=== PATIENT | male | born 1950 | race Caucasian/White ===

== ENCOUNTER → 2017-05-18 | Outpatient (CLI) | payer BC ==
[~2017-05-18] MED LIST: ASPI81TA28 PO; ATOR-22 PO; COEN1CAP17 PO; FENO134C2 PO; LISI20TA3 PO; MULT-506 PO; NAPR1TAB9 PO; OMEG10007 PO; PANT40TA PO; PYRI100T4 PO
[2017-05-18 09:45] LABS: BLOOD UREA NITROGEN 18 mg/dl (7-18)
[2017-05-18 09:57] LABS: % FREE PSA 23.6 %; FREE PSA 1.18 ng/ml
== END | disposition home or self-care (01) ==
LOC: C.LAB1850 07:02
PROVIDERS: ATTEND Urology
DX: R35.0 Frequency of micturition (principal)

== ENCOUNTER → 2017-10-02 | Outpatient (CLI) | payer BC ==
[2017-10-02 09:56] LABS: ALT/SGPT 40 U/L (12-78); AST/SGOT 18 U/L (15-37); BLOOD UREA NITROGEN 22 mg/dl (7-18); BUN/CREATININE RATIO 21.7 (10-20); CALCIUM 9.2 mg/dl (8.5-10.1); CARBON DIOXIDE 29 mmol/L (21-32); CHLORIDE 105 mmol/L (98-107); CREATININE 1.01 mg/dl (0.60-1.40); GLUCOSE 112 mg/dl (70-99); SODIUM 138 mmol/L (136-145)
[2017-10-02 10:07] LABS: ALB/GLOB RATIO 1.1 (0.9-2); ALKALINE PHOSPHATASE 92 U/L (45-117); CHOLESTEROL 140 mg/dl (0-200); CHOLESTEROL/HDL RATIO 2.8; HDL CHOLESTEROL 50 mg/dl; LDL CHOLESTEROL CALCULATED 66 mg/dl; THYROID STIMULATING HORMONE 0.464 uIu/ml (0.300-4.500); TRIGLYCERIDES 118 mg/dl (0-150); VERY LOW DENSITY LIPOPROT CALC 24 mg/dl
[2017-10-02 10:28] LABS: RATIO 5.7 mcg/mg (0-30.0)
[2017-10-02 12:30] LABS: ESTIMATED AVERAGE GLUCOSE 131 mg/dl; HA1C FLAG Normal (Normal)
== END | disposition home or self-care (01) ==
LOC: C.LAB1850 06:49
PROVIDERS: ATTEND Family Medicine
DX: E11.9 Type 2 diabetes mellitus without complications (principal); E78.5 Hyperlipidemia, unspecified; I10 Essential (primary) hypertension

== ENCOUNTER → 2017-10-12 | Outpatient (CLI) | payer BC ==
--- NOTE | 2017-10-12 09:00 | DIAGNOSTIC IMAGING REPORT ---
R SHOULDER MIN 2 VIEWS ROUTINE CLINICAL HISTORY: Right shoulder pain COMPARISON: None. DISCUSSION: No fractures or dislocations are visualized. There are no visible periarticular calcifications. IMPRESSION: Unremarkable conventional radiographic evaluation of the right shoulder for age Electronically signed by: Carlitos Turner M.D. 10/12/2017 8:59 AM Dictated Date/Time: 10/12/2017 8:58 AM
== END | disposition home or self-care (01) ==
LOC: C.RAD1850 08:35
PROVIDERS: ATTEND Family Medicine
DX: M25.511 Pain in right shoulder (principal)

== ENCOUNTER → 2018-01-08 | Outpatient (CLI) | payer BC ==
--- NOTE | 2018-01-08 13:27 | DIAGNOSTIC IMAGING REPORT ---
CHEST 2 VIEWS ROUTINE CLINICAL HISTORY: RIB PAIN pain COMPARISON STUDY: No previous studies for comparison. FINDINGS: Mild cardiomegaly. Parenchymal infiltrative process left base. Pleural reactive change of the lateral aspects of the basal lung regions bilaterally. Mid and upper lungs are considered clear. IMPRESSION: Mild cardiomegaly. Parenchymal infiltrate left base. The above report was generated using voice recognition software. It may contain grammatical, syntax or spelling errors. Electronically signed by: Gallo Cutler M.D. 01/08/2018 1:26 PM Dictated Date/Time: 01/08/2018 1:24 PM
== END | disposition home or self-care (01) ==
LOC: C.RAD1850 13:18
PROVIDERS: ATTEND Family Medicine
DX: R07.81 Pleurodynia (principal)

== ENCOUNTER 2024-12-02 09:49 | Inpatient (IN) ==
--- NOTE | 2024-12-02 08:21 | History & Physical Bridge Note ---
Date of Service December 02, 2024 History & Physical Bridge Note I have examined the patient, reviewed the History & Physical and in the interval since the performance of the History & Physical I have noted the following changes of clinical significance: no changes noted
--- NOTE | 2024-12-02 08:21 | Pre Anesthesia Assessment ---
Date of Service December 02, 2024 Pre Sedation Assessment Cardiovascular + regular rate Respiratory + respiratory effort normal Pre-Sedation Airway Assessment Smoking Status: Never smoker Hx Sleep Apnea: No Hx Difficult Intubation: No Thyromental Distance: < 3.5 Finger Breadths Oral Cavity: + Dental Abnormalities Mallampati Class: III ASA: ASA3 Procedure Planning Contraindications for Sedation: none Current Medications Reviewed: Yes Notes The planned sedation has been discussed with the patient. Informed Consent was obtained. I have identified the patient, determined the appropriateness of sedation and have assessed the patient immediately prior to the procedure. All medicine(s) and interventions are by my order.
[2024-12-02] MEDS: ASPIRIN 81 MG CHEW ONE (10:41)
[2024-12-02] MEDS: NITROGLYCERIN/D5W 100MCG/ML 20ML SYR ONE (10:41)
[2024-12-02] MEDS: niCARdipine 2,000 MCG/20 ML SYR ONE (10:41)
[2024-12-02 10:46] LABS: iSTAT Hemoglobin 13.6 g/dl (14.0-18.0); iSTAT Ionized Calcium 1.26 mmol/l (1.12-1.32); iSTAT Potassium 4.2 mmol/L (3.3-5.0)
[2024-12-02] MEDS: MIDAZOLAM HCL 1 MG/ML 2ML VIAL ONE ×4 (13:10→13:12)
[2024-12-02] MEDS: fentaNYL citrate PF 100 MCG/2 ML VIAL ONE ×3 (13:10→13:12)
[2024-12-02] MEDS: OPTIRAY 350 ONE (13:10)
[2024-12-02] MEDS: HEPARIN (PORCINE) 1000 UNIT/ML 10 ML (CATH LAB USE ONLY) ONE ×2 (13:10→13:12)
[2024-12-02] MEDS: CLOPIDOGREL BISULFATE 300 MG TAB ONE (13:11)
[2024-12-02] MEDS: ONDANSETRON INJ 2 MG/ML 2 ML VIAL ONE (13:12)
[2024-12-02] MEDS: NOREPINEPHRINE/D5W 4 MG/250 ML IV ONE (13:12)
--- NOTE | 2024-12-02 13:23 | Post Anesthesia Assessment ---
Date of Service December 02, 2024 Post Sedation Assessment Vital Signs BP 12/02/24 09:57 157/81 H Recovery Score Activity: Moves 4 extremities Respiration: Deep Breath/Cough Circulation: +/-20% PreAnes Value Consciousness: Fully Awake Oxygen Saturation: O2 needed for >90% Discharge Sedation Level of Care: Fast Track Phase II Post Sedation Plan On clinical assessment, the patient appears to have tolerated the sedation without complications. Patient is recovering as anticipated. Patient will continue to be monitored by nursing and may be discharged when sedation discharge criteria are met per below protocol. Upon Completions of procedure up to 15 minutes continue every 5 minute vital signs and the P.A.R. score; then discharge to a Phase I or Fast Track to Phase II per the following guidelines: * Discharge Patient to appropriate Phase II area if PAR is 8 or greater or return to pre- procedure baseline. The post - procedure orders will be as directed. * If PAR score is less than 8 or not return to pre-procedure baseline then patient will follow Phase I monitoring till PAR is reached for Phase II. The Phase I may be done in procedure room or may call to secure a Phase I area. * If naloxone or flumazenil are used for reversal, hold in Phase I for continued monitoring from when last reversal dose was given for a minimum of 60 minutes or longer pending the nurse and/or physician discretion of patient condition before discharge to Phase II. Please call the Sedation Physician to re-evaluate and complete post-note for discharge to Phase II area. Do NOT discharge from procedure sedation or Phase 1 until post- sedation evaluation note is complete by procedure /sedation MD Sedation Discharge Instructions to be given to the patient at discharge to home.
--- NOTE | 2024-12-02 13:25 | Cardiac Catheterization ---
[employer] Data: Welfare Worker Cardiac Status Clinical evaluation leading to the procedure CAD Presenation: Stable angina Anginal Classification: CCS III Diagnostic Physicians Name: Gareth Bui MD Closure Device Recommendations: PCI without planned CABG Cardiac Cath Procedure Full Procedure Date December 02, 2024 Pre-Procedure Diagnosis Pre-Procedure Diagnosis: CAD AUC Score AUC Score: 7 Post-Procedure Diagnosis Post-Procedure Diagnosis: Severe CAD and Successful PCI Procedure(s) Performed Procedure(s) Performed: Coronary Angiography and Procedure (Intravascular lithotripsy) Shell Sorter Gareth Bui MD Vacuum Metalizing Supervisor(s) Showers Estimated Blood Loss Estimated Blood Loss: 45 Medication(s) Medication(s): Clopidogrel, Fentanyl, Heparin, Lidocaine 1%, Nicardipine, Nitroglycerin, Norepinephrine and Versed Summary of Findings Indication: Exertional dyspnea, abnormal stress test, frequent ventricular ectopy Access: 6 Fr slender right radial artery Catheters: [place], diagnostic JL 3.5, AR-1 guide Findings: LM -normal caliber, no significant disease LAD -small to medium caliber, with mid segment luminal irregularities. Small distal vessel tapers prior to apex. Medium D1 without significant disease. Small D2 without disease. Circumflex -medium caliber vessel that courses in ramus territory. RCA -large-caliber, calcified, 40-50% mid RCA takeoff of RV marginal, mild diffuse distal disease prior to 80 to 90% heavily calcified stenosis just prior to takeoff of RPDA. Large right posterior AV branch into PLB's widely patent. -- PCI -- Antithrombotic therapy: Heparin, clopidogrel Procedure: RCA cannulated with AR-1 guide Pre-procedure flow LESLEE 3 [place] blue wire passed across lesion into distal right PLB With the aid of a GuideLiner distal RCA lesion predilated with 3.0 compliant balloon Attempt made to pass 3.5 x 12 mm shockwave IVL catheter across stenosis unsuccessful. Distal RCA just proximal to distal stenosis treated with IVL for a total of 50 pulses at 4 alfred. Further attempts to predilate stenosis with 2.5 and 3.0 NC balloons With balloon inflations across PDA had transient ST elevations and borderline hypotension. Briefly on 0.05 norepinephrine, stopped with increased ventricular ectopy. Attempt made to pass 3.5 x 22 mm [place] across stenosis unsuccessful despite GuideLiner placement in distal RCA Additional attempt made to further dilate calcified stenosis with 3.0 shockwave balloon. Again unable to pass balloon completely across stenosis. Treated with additional 40 pulses of IVL just proximal to stenosis. Attempt made to further dilate with 3.5 NC but unable to pass balloon. Dilated again with 2.5 NC balloon prior to repeat attempt at passing 3.5 x 22 mm Lemuel which again would not cross stenosis and stent removed undeployed. Distal stenosis rewired with mailman wire which was placed into most terminal PLB With aid of a GuideLiner eventually able to pass 3.5 x 15 mm Lemuel frontier across stenosis and takeoff of PDA Stent post-dilated with 3.0 and 3.5 noncompliant balloons. Still with residual severe stenosis just prior to PDA 3.0 shockwave balloon placed into stent. Residual stenosis treated with 70 additional pulses Post shockwave stent well-expanded with LESLEE-3 flow and PDA and posterior V branch with minimal residual stenosis and no apparent cardiac complications. Arterial Closure: TR band Summary: 1. Severe single vessel coronary artery disease -80-90% heavily calcified distal RCA at takeoff of RPDA 2. Successful PCI of distal RCA with intravascular lithotripsy and single drug- eluting stent (3.0 x 15 mm Lemuel; postdilated with 3.5 NC and additional lithotripsy). 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 Any exceptions are noted below. [facility] Card Cath Procedure Codes Cardiac Catheterization Procedure 1: Cardiovascular Cath Procedures: 75909 Coronaries Moderate Sedation Procedure 1: Sedation/Anesthesia: 38619 Mod Sedation by the same physician;Init15 Min Child Age 5 & Up Procedure 2: Sedation/Anesthesia: 70206 Mod Sedation by the same physician; Ea [id number] Minutes Angioplasty Procedure 1: Cardiovascular Angioplasty Procedures: 15956 Perq Trluml Coronry Lithotrp Stenting Procedure 1: Cardiovascular Stent Procedures: 27232 Perc transcatheter placement of intracoronary stent(s), with ang PG Care Time/CCT Total # of Minutes Spent Total Time Spent with Patient: Total time spent is greater than 50% in coordination of care (as documented) at patient's floor/unit and/or counseling patient:
[2024-12-02] MEDS ORDERED: ONDANSETRON INJ 2 MG/ML 2 ML VIAL IV PRN (13:28)
[2024-12-02] MEDS ORDERED: NITROGLYCERIN SL 0.4 MG/TAB TAB SL PRN (13:28)
--- OUTSIDE RECORDS SUMMARY | 2024-12-02 13:59 | External Medical Summary | Continuity of Care Document ---
Author Name Unknown Organization [facility] [address] [facility] Address [address] [place], [place] [id number] Care Team Providers Care Staff Appraiser Name Role Phone Roddy Hugheslionel Primary Care Physician [phone] [id number] Date(s): 11/26/24 - 11/26/24 [facility] [address], [address] [place] [address] [phone] Encounter Diagnosis Frequent PVCs(Discharge Diagnosis) - 11/26/24 Chronotropic incompetence(Discharge Diagnosis) - 11/26/24 FRANCIS (dyspnea on exertion)(Discharge Diagnosis) - 11/26/24 Hypotension(Discharge Diagnosis) - 11/26/24 Abnormal stress echo(Discharge Diagnosis) - 11/26/24 Discharge Disposition: Home or Self Care Attending Physician: LINDA Salas Sarah A Allergies, Adverse Reactions, Alerts Substance Criticality Severity Reaction Reaction Severity Status penicillin itching Active Assessment and Plan Extracted from: Title:Cardiology Office Visit Note Author:LINDA Mcgovern rd, Sarah A Date:11/26/24 Impression: 1. Fatigue and dyspnea 2. Echo 10/2024 - NormalLVF, EF 65%, mild LVH,Elevated left ventricular end-diastolic pressure. Grade II diastolic dysfunction, Severely dilated left atrium,mildly dilated right ventricle with normal systolic function,Mildly dilated right atrium,dilated aortic root (4.1 cm) and ascending aorta (4.1 cm), Heavily calcified, trileaflet aortic valve. Moderate aortic stenosis, moderate aortic insufficiency,mild to moderate mitral valve regurgitation,Mildly elevated pulmonary artery pressures; estimated PASP is 38 mmHg 3. HLD 4. 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 Stress echo achieving 72% of MPHR, lots of ectopy at all stages of stress getting progressively more frequent with increasedexertion, short episode of NSVTno ischemia, blunted blood pressure response and hypotension Mr. Bustamante's studies were reviewed with him. His stress testwas unable to rule out ischemia given that he only hit 70% MPHR. His dyspnea may be caused by the to be itself, more the blunted blood pressure responseor chronotropic incompetence, orcoronary disease which is subsequently causing all the ectopy. Would recommend a cardiac catheterization for him. Idiscussed the risk benefits of cardiac catheterization.Risks including but not limited tobleeding or infection at the puncture site, damage to the patient's radial or femoral artery,risk of contrast-induced nephropathy, allergic reaction to contrastand aone in ten thousand risk of heart attack, stroke, or . The patient understands the risksand wishes to proceed. He would like this to be scheduled at [facility]. I would also like him to seeelectrophysiologyfor consideration of pacemakerand/or PVC ablation. We are still awaiting his Holter study to see how many PVCs he hasin a 24-hour. I will avoid adding AV alisia blockers given hischronotropic incompetence. He will return to the clinicin3 months, sooner if necessary based on testing. Immunizations Given and Recorded Vaccine Date Status Refusal Reason RSV Vaccine Unspecified 09/01/24 Recorded influenza virus vaccine, inactivated 08/29/24 Give n influenza virus vaccine, inactivated 07/27/23 Give n influenza virus vaccine, inactivated 09/11/22 Give n influenza virus vaccine, inactivated 12/07/21 Give n influenza virus vaccine, inactivated 07/24/19 Give n influenza virus vaccine, inactivated 07/15/18 Give n influenza virus vaccine, inactivated 07/12/17 Give n influenza virus vaccine, inactivated 08/29/16 Give n influenza virus vaccine, inactivated 09/03/15 Give n influenza virus vaccine, inactivated 09/01/14 Give n influenza virus vaccine, inactivated 07/17/13 Give n influenza virus vaccine, inactivated 09/10/12 Give n pneumococcal 20-valent conjugate vaccine 08/29/24 Given SARS COVID Vaccine Unspecified 08/02/23 Recorded SARS-CoV-2 mRNA ([id number]) 04/28/22 Re corded tetanus/diphtheria/pertuss, acel (Tdap) 1 03/11/22 Recorded SARS-CoV-2 (COVID-19) mRNA BNT-162b2 vax 2 08/04/21 Recorded SARS-CoV-2 (COVID-19) mRNA BNT-162b2 vax 3 12/31/20 Recorded SARS-CoV-2 (COVID-19) mRNA BNT-162b2 vax 4 12/10/20 Recorded zoster vaccine, inactivated 11/21/20 Recorded zoster vaccine, inactivated 09/16/20 Recorded pneumococcal 23-valent vaccine 09/08/20 Given pneumococcal 23-valent vaccine 11/24/12 Recorded pneumococcal 13-valent vaccine 10/12/17 Given hepatitis B adult vaccine 04/15/13 Given hepatitis B adult vaccine 01/14/13 Given hepatitis B adult vaccine 10/05/12 Recorded hepatitis B adult vaccine 5 10/05/12 Recorded diphtheria/tetanus/pertuss, acel (DTaP) 10/31/12 R ecorded zoster vaccine live 10/08/12 Recorded tetanus toxoids-diphtheria, Td (Adult) 08/09/04 Re corded 1Result Comment: 2022-03-14: Historical information-source unspecified 2Result Comment: 2021-12-07: Historical information-source unspecified 3Result Comment: 2021-12-07: Historical information-source unspecified 4Result Comment: 2021-12-07: Historical information-source unspecified 5Result Comment: 2021-12-07: Historical information-source unspecified Medications Abrysvo preservative-free intramuscular injection Start: 08/29/24 8:27:00 AM EDT, 0.5 mL, IM, ONCE, Disp# 0.5 mL, Note to Pharmacy: RSV vaccine, Pharmacy: [facility]/pharmacy #[id number] Start Date: 08/29/24 Status: Ordered Aspirin Low Dose Start: 08/02/10 2:30:05 PM EDT, 81 mg =, PO, Daily, Refills: 0, current medication from another provider Start Date: 08/02/10 Status: Ordered atorvastatin 20 mg oral tablet Start: 01/21/24 11:04:00 AM EDT, See Instructions, Disp# 90 tab, Refills: 3, TAKE 1 TABLET BY MOUTH EVERY DAY, Pharmacy: [facility]/pharmacy #[id number] Start Date: 01/21/24 Status: Ordered Coenzyme Q10 100 mg oral capsule Start: 05/25/11 8:30:00 AM EDT, 1 cap, PO, Daily, cap Start Date: 05/25/11 Status: Ordered Entresto 24 mg-26 mg oral tablet Start: 10/24/24 1:54:00 PM EST, 1 tab, PO, bid, Disp# 60 tab, Refills: 11, STOP [facility], Note to Pharmacy: STOP [facility], Pharmacy: [facility]/pharmacy #[id number] Start Date: 10/24/24 Status: Ordered fenofibrate 134 mg oral capsule Start: 01/15/24 10:17:00 AM EDT, 1 cap, PO, Daily, Disp# 90 cap, Refills: 3, Pharmacy: [id number] Start Date: 01/15/24 Status: Ordered loratadine 10 mg oral capsule Start: 05/14/19 3:27:00 PM EDT, 1 cap, PO, Daily Start Date: 05/14/19 Status: Ordered methIMAzole 5 mg oral tablet Start: 03/24/19 9:08:00 AM EDT, See Instructions, Disp# 30 tab, 1.5 tab PO Daily, per Endo, other Start Date: 03/24/19 Status: Ordered montelukast 10 mg oral tablet Start: 09/23/24 11:01:00 AM EST, 1 tab, PO, qPM, Disp# 90 tab, Refills: 3, Pharmacy: [id number] Start Date: 09/23/24 Status: Ordered multivitamin Start: 08/02/10 2:29:58 PM EDT, Refills: 0, 1 po daily, current medication from another provider Start Date: 08/02/10 Status: Ordered One Touch Delica Plus (33G) Lancets Start: 01/01/23 8:15:00 AM EST, See Instructions, Disp# 100 each, Refills: 11, use to check blood sugar daily prn Dx: DM, Note to Pharmacy: Dx E11.9, Pharmacy: [facility]/pharmacy #[id number] Start Date: 01/01/23 Status: Ordered One Touch Ultra 2 Glucose Monitor Start: 10/12/20 10:51:00 AM EST, See Instructions, Disp# 1 kit, Refills: 0, test blood sugars once daily, Pharmacy: [facility]/pharmacy #[id number] Start Date: 10/12/20 Status: Ordered One Touch Ultra Blue Test Strips Start: 01/01/23 8:14:00 AM EST, See Instructions, Disp# 100 each, Refills: 11, home glucose check dailhy prn Dx: DM, Pharmacy: [facility]/pharmacy #[id number] Start Date: 01/01/23 Status: Ordered One Touch Ultra Test Strips 100 ct Start: 10/12/20 10:51:00 AM EST, See Instructions, Disp# 100 each, Refills: 3, test blood sugars once daily, Pharmacy: [facility]/pharmacy #[id number] Start Date: 10/12/20 Status: Ordered ProAir HFA 90 mcg/inh inhalation aerosol Start: 07/27/23 8:07:00 AM EDT, 2 puff, inhaled, qid, Disp# 1 each, Note to Pharmacy: or equivalent medicine at a cheaper smith, PRN: as needed for wheezing and cough, Pharmacy: [facility]/pharmacy #[id number] Start Date: 07/27/23 Status: Ordered spironolactone 25 mg oral tablet Start: 08/12/24 8:17:00 AM EDT, 1 tab, PO, Daily, Disp# 90 tab, Refills: 1, Pharmacy: [facility]/pharmacy #[id number] Start Date: 08/12/24 Status: Ordered Vitamin B6 50 mg oral tablet Start: 04/10/17 8:07:00 AM EDT, 1 tab, PO, Daily, Disp# 30 tab, other Start Date: 04/10/17 Stop Date: 05/10/17 Status: Ordered Vitamin D3 25 mcg (1000 intl units) oral capsule Start: 10/14/24 2:06:00 PM EST, 1 cap, PO, Daily Start Date: 10/14/24 Status: Ordered Mental Status 11/26/24 Barriers to Learning one year None evide nt Mandatory Health Literacy Documentation Yes Health Literacy Communication Barriers N ever Primary Language Thai Problem List Condition Confirmation Course Effective Dates Status H ealth Status Informant BMI 34.0-34.9,adult Confirmed Active Burning sensation of skin Confirmed Active Fatigue Confirmed Active Heart murmur Confirmed Active H/O prostate cancer Confirmed Active HTN - Hypertension Confirmed Active Hyperlipidemia Confirmed Active Hyperthyroidism Confirmed Active Joint pain Confirmed Active Obesity Confirmed Active RIYA on CPAP Confirmed Active Peripheral neuropathy Confirmed Active Photosensitivity Confirmed Active Restrictive lung disease Confirmed Active Swelling Confirmed Active Leg swelling Confirmed Active T2DM (type 2 diabetes mellitus) Confirmed Active Vitamin D insufficiency Confirmed Active Weight disorder Confirmed Active Wheezing Confirmed Active Diagnosis Diagnosis Type Effective Dates Health Status Clinical Service Informant Hypotension Discharge Diagnosis 11/26/24 Non-Specified FRANCIS (dyspnea on exertion) Discharge Diagnosis 11/26/24 Non-Specified Frequent PVCs Discharge Diagnosis 11/26/24 Non-Specified Chronotropic incompetence Discharge Diagnosis 11/26/24 Non-Specified Abnormal stress echo Discharge Diagnosis 11/26/24 Procedures Procedure Date Related Diagnosis Body Site Status Shave biopsy 05/28/24 Completed MOHS 1 STAGE T/A/L 03/14/23 Comple to Punch biopsy of skin 02/15/23 Comp leted Chest x-ray 1 10/03/22 Completed Diagnostic colonoscopy 2, 3 11/29/20 Completed Diabetic retinal eye exam 4 09/23/19 Completed Pathology report 5 10/24/18 Comple to prostate biopsy 6 10/24/18 Complet ed Chest x-ray 7 01/08/18 Completed Diabetic retinal eye exam 8 11/27/17 Completed Carpal tunnel release 06/05/15 Com pleted Colonoscopy normal 9 01/04/15 Comp leted Examination of eye 10 09/10/14 Com pleted diabetes coaching-AP 09/06/12 Comp leted colonoscopy 10/08 11 10/05/09 Comp leted Echo 09/07; 12/1412/06/08 Complete d left shoulder nevus removed 05/1205/05/08 Completed right lower abd nevus removed 05/1205/05/08 Completed Examination of eye 12, 13 11/14/71 Completed 1Cardiomegaly with no active disease in the chest 2Repeat colonoscopy in 5 years for surveillance. 9-Uhi-vowwtodg internal hemorrhoids -No specimens collected 4No evidence of diabetic retinopathy 5Final diagnosis See scanned report 6Specimens right and left apex, midprostate, base and anterior. 7mild cardiomegaly. parenchymal infiltrate left base 8No diabetic retinopathy 9internal hemorrhoids otherwise normal. Repeat in 5 years Arcenio Zaman LPN 10no macular degeneration [id number]: WNL---repeat in 5 years due to FHx 12No evidence of diabetic retinopathy. 13No evidence of DM retinopathy Vital Signs Most recent to oldest [Reference Range]: 1 Patient Weight 89.7 kg (11/26/24 1:08 PM) Heart Rate 80 bpm (11/26/24 1:08 PM) Respiratory Rate 18 br/min (11/26/24 1:08 PM) Blood Pressure 112/60mmHg (11/26/24 1:08 PM) BP Location # 1 Left Arm (11/26/24 1:08 PM) Social History Social History Type Response Smoking Status Never smoked cigaret alfred Sex Male Sex Representation Male (finding) Cardiology Outpatient Note * LINDA Salas Sarah A: PERFORM, MODIFY Event Display: Cardiology Outpt Note Authored Date: Primary Care Provider MD Saul, Rut Chief Complaint -1 week F/U fatigue, and leg swelling is about the same denies resent chest pain/ tightness,no heart racing or Palpations, SOB ,No resent ER visits no unusual bleeding History of Present Illness Mr. Bustamante presents for follow up of his recent testing for FRANCIS. Mr. Bustamante feels about the same. No changes or shortness of breath. He is not having chest pain. No palpitations. Review of Systems All other systems reviewed and negative except as discussed in the HPI Physical Exam Vitals & Measurements HR:80(Monitored) RR:18 BP:112/60 SpO2:96% WT:89.7kg WT:89.700kg(Dosing) Physical Examination General: Alert and oriented, No acute distress. Neck: No jugular venous distention. Respiratory: Lungs are clear to auscultation, Respirations are non-labored. Cardiovascular: Normal rate, Regular rhythm, No murmur, No edema. Integumentary: Warm, Dry, [place] Neurologic: Alert, Oriented. Cognition and Speech: Speech clear and coherent. Psychiatric: Cooperative, Appropriate mood & affect. Assessment/Plan Impression: 1. Fatigue and dyspnea 2. Echo 10/2024 - NormalLVF, EF 65%, mild LVH,Elevated left ventricular end-diastolic pressure. Grade II diastolic dysfunction, Severely dilated left atrium,mildly dilated right ventricle with normal systolic function,Mildly dilated right atrium,dilated aortic root (4.1 cm) and ascending aorta (4.1 cm), Heavily calcified, trileaflet aortic valve. Moderate aortic stenosis, moderate aortic insufficiency,mild to moderate mitral valve regurgitation,Mildly elevated pulmonary artery pressures; estimatedPASP is 38 mmHg 3. HLD 4. 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 Stress echo achieving 72% of MPHR, lots of ectopy at all stages of stress getting progressively more frequent with increasedexertion, short episode of NSVTno ischemia, blunted blood pressure response and hypotension Mr. Bustamante's studies were reviewed with him. His stress testwas unable to rule out ischemia given that he only hit 70% MPHR. His dyspnea may be caused by the to be itself, more the blunted blood pressure responseor chronotropic incompetence, orcoronary disease which is subsequently causing all the ectopy. Would recommend a cardiac catheterization for him. Idiscussed the risk benefits of cardiac catheterization.Risks including but not limited tobleeding or infection at the puncture site, damage to the patient's radial or femoral artery,risk of contrast-induced nephropathy, allergic reaction to contrastand aone in ten thousand risk of heart attack, stroke, or . The patient understands the risksand wishes to proceed. [facility]. I would also like him to seeelectrophysiologyfor consideration of pacemakerand/or PVC ablation. We are still awaiting his Holter study to see how many PVCs he hasin a 24-hour. I will avoid adding AV alisia blockers given hischronotropic incompetence. He will return to the clinicin3 months, sooner if necessary based on testing. Problem List/Past Medical History Ongoing Bilateral carpal tunnel syndrome| Status: Inactive BMI 34.0-34.9,adult Burning sensation of skin Fatigue H/O prostate cancer Heart murmur HTN - Hypertension Hyperlipidemia Hyperthyroidism Joint pain Left ventricular hypertrophy| Status: Inactive Leg swelling LIPOMA| Status: Inactive Nevus| Status: Inactive Obesity RIYA on CPAP Peripheral neuropathy Pes planus| Status: Inactive Photosensitivity Restrictive lung disease Swelling T2DM (type 2 diabetes mellitus) Vitamin D insufficiency Weight disorder Wheezing Resolved Acute upper respiratory infection PC (prostate cancer) Pneumonia S/P orthopedic surgery, follow-up exam VIRAL MENINGITIS, UNSPECIFIED Procedure/Surgical History Shave biopsy| Service Date: 05/28/2024MOHS 1 STAGE T/A/L| Service Date: 3Punch biopsy of skin| Service Date: 3Chest x-ray| Service Date: 2Diagnostic colonoscopy| Service Date: 1Diabetic retinal eye exam| Service Date: 09/23/2019prostate biopsy| Service Date: 10/24/2018Pathology report| Service Date: 10/24/2018Chest x-ray| Service Date: 01/08/2018Diabetic retinal eye exam| Service Date: 11/27/2017Carpal tunnel release| Service Date: 06/05/2015Colonoscopy normal| Service Date: 01/04/2015Examination of eye| Service Date: 09/10/2014diabetes coaching-AP| Service Date: 09/06/2012colonoscopy 10/08| Service Date: 10/05/2009Echo 09/07; 12/14| Service Date: 12/06/2008left shoulder nevus removed 05/12| Service Date: 05/05/2008right lower abd nevus removed 05/12| Service Date: 05/05/2008Examination of eye| Service Date: 11/14/1971 Medications albuterol(ProAir HFA 90 mcg/inh inhalation aerosol), 2 puff, inhaled, qid, PRN aspirin(Aspirin Low Dose), 81 mg, PO, Daily atorvastatin(atorvastatin 20 mg oral tablet), See Instructions, 3 refills cholecalciferol(Vitamin D3 25 mcg (1000 intl units) oral capsule), 25 mcg= 1 cap, PO, Daily diabetes supplies(One Touch Ultra Blue Test Strips), See Instructions, 11 refills diabetes supplies(One Touch Delica Plus (33G) Lancets), See Instructions, 11 refills diabetes supplies(One Touch Ultra 2 Glucose Monitor), See Instructions diabetes supplies(One Touch Ultra Test Strips 100 ct), See Instructions, 3 refills fenofibrate(fenofibrate 134 mg oral capsule), 1 cap, PO, Daily loratadine(loratadine 10 mg oral capsule), 10 mg= 1 cap, PO, Daily methIMAzole(methIMAzole 5 mg oral tablet), See Instructions montelukast(montelukast 10 mg oral tablet), 1 tab, PO, qPM multivitamin pyridoxine(Vitamin B6 50 mg oral tablet), 50 mg= 1 tab, PO, Daily RSV vaccine, preF A-preF B, recombinant(Abrysvo preservative-free intramuscular injection), 0.5 mL,IM, ONCE sacubitril-valsartan(Entresto 24 mg-26 mg oral tablet), 1 tab, PO, bid, 11 refills spironolactone(spironolactone 25 mg oral tablet), 1 tab, PO, Daily, 1 refills ubiquinone(Coenzyme Q10 100 mg oral capsule), 1 cap, PO, Daily Allergies penicillinitching Social History Smoking Status Never smoked cigarettes Alcohol Type:Beer Frequency:1-2 times per month Average drinks per episode in last year:2 Employment/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 Cancer: Mother. Colon cancer..: Sister. Health Status Family Member(s) Family Member(s) Relationship: Father, Name: , Age: 85 Years, Cause: Numerous CA: Soft tissue face, stomach and lung mets Electronic Signature on File CC: Rut Hughes MD [address] [place] [address] Electronically Reviewed/Signed by: LINDA Zurita Author Signature Dt/Tm:11/26/2024 04:25 PM [facility] Patient Care team information Care Team Personnel Name: MD Hughes Dongsheng Position: Physician - Family Med Member Role: Primary Care Provider Address: [address] [place] [address] Name: Jennifer Baron Joy Position: Pharmacist Schedule II Member Role: Pharmacy - Lifetime Care Team Related Persons Name: WILMER BUSTAMANTE"
--- OUTSIDE RECORDS SUMMARY | 2024-12-02 14:00 | External Medical Summary | Continuity of Care Document ---
Author Name Unknown Organization [address] Address [address] [place] [phone] Care Team Providers Care Assembler Chassis Name Role Phone Rut Hughes Primary Care Physician [phone] [facility] [id number] Date(s): 11/19/24 - 11/19/24 [place] [address], [address] [place] [address] [phone] Discharge Disposition: Home or Self Care Attending Physician: LINDA Salas Sarah A Referring Physician: LINDA Salas Sarah A Allergies, Adverse Reactions, Alerts Substance Criticality Severity Reaction Reaction Severity Status penicillin itching Active Immunizations Given and Recorded Vaccine Date Status [...] COVID Vaccine Unspecified 08/02/23 Recorded SARS-CoV-2 mRNA (jgkgguvzlid-okpj-eri) 04/28/22 Re corded tetanus/diphtheria/pertuss, acel (Tdap) 1 5/7/22 Recorded SARS-CoV-2 (COVID-19) mRNA BNT-162b2 vax 2 [...] mL, Note to Pharmacy: RSV vaccine, Pharmacy: [facility]/pharmacy #[id number] Start Date: 08/29/24 Status: Ordered Aspirin Low Dose Start: 08/02/10 2:30:05 PM EDT, 81 mg =, PO, Daily, Refills: 0, current medication from another provider Start Date: 08/02/10 Status: Ordered atorvastatin 20 mg oral tablet Start: 01/21/24 11:04:00 AM EDT, See Instructions, Disp# 90 tab, Refills: 3, TAKE 1 TABLET BY MOUTH EVERY DAY, Pharmacy: [facility]/pharmacy #[id number] Start Date: 01/21/24 Status: Ordered Coenzyme Q10 100 mg oral capsule Start: 05/25/11 8:30:00 AM EDT, 1 cap, PO, Daily, cap Start Date: 05/25/11 Status: Ordered Entresto 24 mg-26 mg oral tablet Start: 10/24/24 1:54:00 PM EST, 1 tab, PO, bid, Disp# 60 tab, Refills: 11, STOP [facility]AN, Note to Pharmacy: STOP [facility]AN, Pharmacy: [facility]/pharmacy #[id number] Start Date: 10/24/24 Status: Ordered fenofibrate 134 mg oral capsule Start: 01/15/24 10:17:00 AM EDT, 1 cap, PO, Daily, Disp# 90 cap, Refills: 3, Pharmacy: [id number] Start Date: 01/15/24 Status: Ordered loratadine 10 [...] qPM, Disp# 90 tab, Refills: 3, Pharmacy: [id number] Start Date: 09/23/24 Status: Ordered multivitamin Start: 08/02/10 2:29:58 PM EDT, Refills: 0, 1 po daily, current medication from another provider Start Date: 08/02/10 Status: Ordered One Touch Delica Plus (33G) Lancets Start: 01/01/23 8:15:00 AM EST, See Instructions, Disp# 100 each, Refills: 11, use to check blood sugar daily prn Dx: DM, Note to Pharmacy: Dx E11.9, Pharmacy: [facility]/pharmacy #[id number] Start Date: 01/01/23 Status: Ordered One Touch Ultra 2 Glucose Monitor Start: 10/12/20 10:51:00 AM EST, See Instructions, Disp# 1 kit, Refills: 0, test blood sugars once daily, Pharmacy: [facility]/pharmacy #[id number] Start Date: 10/12/20 Status: Ordered One Touch Ultra Blue Test Strips Start: 01/01/23 8:14:00 AM EST, See Instructions, Disp# 100 each, Refills: 11, home glucose check dailhy prn Dx: DM, Pharmacy: [facility]/pharmacy #[id number] Start Date: 01/01/23 Status: Ordered One Touch Ultra Test Strips 100 ct Start: 10/12/20 10:51:00 AM EST, See Instructions, Disp# 100 each, Refills: 3, test blood sugars once daily, Pharmacy: [facility]/pharmacy #[id number] Start Date: 10/12/20 Status: Ordered ProAir HFA 90 mcg/inh inhalation aerosol Start: 07/27/23 8:07:00 AM EDT, 2 puff, inhaled, qid, Disp# 1 each, Note to Pharmacy: or equivalent medicine at a cheaper smith, PRN: as needed for wheezing and cough, Pharmacy: [facility]/pharmacy #[id number] Start Date: 07/27/23 Status: Ordered spironolactone 25 mg oral tablet Start: 08/12/24 8:17:00 AM EDT, 1 tab, PO, Daily, Disp# 90 tab, Refills: 1, Pharmacy: [facility]/pharmacy #[id number] Start Date: 08/12/24 Status: Ordered Vitamin B6 50 mg oral tablet Start: 04/10/17 8:07:00 AM EDT, 1 tab, PO, Daily, Disp# 30 tab, other Start Date: 04/10/17 Stop Date: 05/10/17 Status: Ordered Vitamin D3 25 mcg (1000 intl units) oral capsule Start: 10/14/24 2:06:00 PM EST, 1 cap, PO, Daily Start Date: 10/14/24 Status: Ordered Problem List Condition Confirmation Course Effective Dates [...] Weight disorder Confirmed Active Wheezing Confirmed Active Procedures Procedure Date Related Diagnosis Body Site Status Shave biopsy 05/28/24 Completed [facility] 1 STAGE T/A/L 03/14/23 Comple to Punch [...] 2Repeat colonoscopy in 5 years for surveillance. 3-Muz-synrjnjt internal hemorrhoids -No specimens collected 4No evidence of diabetic retinopathy 5Final diagnosis See scanned report 6Specimens right and left apex, midprostate, base and anterior. 7mild cardiomegaly. parenchymal infiltrate left base 8No diabetic retinopathy 9internal hemorrhoids otherwise normal. Repeat in 5 years Arcenio Zaman LPN 10no macular degeneration 325093: WNL---repeat in 5 years due to FHx 12No evidence of diabetic retinopathy. 13No evidence of DM retinopathy Results Radiology Reports * Exam Date Time Procedure Performing Provider Status 11/19/24 3:00 PM Echo Stress, Exercise w/ Contrast Jeannette Charles; Final Notes: (Echo Stress, Exercise w/ Contrast) Reason For Exam: fagan Echo Stress, Exercise w/ Contrast Report Signatures Stress ECG Finalized by Dr. Jhony De Souza MD on 11/20/2024 04:26 PM Echo Finalized by Dr. Jhony De Souza MD on 11/20/2024 04:26 PM [place] Act 112: Yes - Discussed with patient Summary 1. Negative Exercise Stress ECG and Echocardiogram for ischemia at 74% MPHR (110 BPM), cannot exclude ischemia at higher heart rates. 2. No ectopy was noted in pretest. PVC's presented in stage 1 at 2:02. Ectopy increased throughout the test with bigeminy occurring near peak exertion. Ventricular couplets and a 3 beat run multifocal NSVT. There was an extended period of ventricular Bigeminy in recovery. 3. Heart rate was blunted, blood pressure response was hypotensive. Pt has complaints of significant leg fatigue. Supervising: Leonie Treviño RN BMI: 31.64 Contrast/Agitated Saline Contrast Agent/Agitated Saline: Definity IV Access: Right Hand Patient Info Name: LAYA ARSHAD Age: 74 years : 1950 Gender: Male Ht: 168 cm Wt: 89 kg BSA: 2.06 m2 Technical Quality: Technically difficult study Exam Date: 11/19/2024 2:33 PM Exam Location: [facility] Patient Status: Outpatient Staff Ordering Physician: Cherrie Salas Returning Officer: Jeannette Sousa RDCS, RVT Attending Physician: Cherrie Salas Study Info CPT J3490 - 37361 - Indications R0600 - Dyspnea, unspecified Procedure(s) * An Exercise stress echocardiogram was performed. * Failed 2D images were enhanced successfully with Definity per lab protocol. * Returning Officer, Jeannette Sousa RDCS, RVT, provided education about ultrasound enhancing agent to the patient. Exam Type: Exercise Stress ECG Summary Nondiagnostic exercise ECG for ischemia (attained <85% MPHR). Protocol: Jax Rest HR: 68 bpm Peak HR: 110 bpm Rest Sys BP: 124 mmHg Peak Sys BP: 140 mmHg Max Pred HR: 148 bpm % Max Pred HR: 74 % Target HR: 126 bpm Max RPP: 15,400 bpm*mmHg Trujillo Score: 2 Target HR Summary: Hemodynamic response to dobutamine BP Response: Patient exhibited a hypotensive response with stress Termination Reason: leg fatigue Max ST Seg Deviation: 0.50 mm Total Time: 4 min : 28 sec Rest Holliday BP: 76 mmHg Peak Holliday BP: 70 mmHg Angina Score: None Total METS: 6.30 Stress ECG Details Resting ECG Normal sinus rhythm. Stress ECG No abnormal ST/T wave changes with exercise. Arrhythmias Frequent PVCs. Non-sustained ventricular tachycardia (3-5 beats). Ventricular couplets. No ectopy was noted in pretest. PVC's presented in stage 1 at 2:02. Ectopy increased throughout the test with bigeminy occurring near peak exertion. Ventricular couplets and a 3 beat run multifocal NSVT. There was an extended period of ventricular Bigeminy in recovery. A 3 beat run of PAT and a 7 beat run pt atrial tachycardia also noted in recovery at 3:10. Stress Echo Findings Left Ventricle Left ventricle becomes smaller and more vigorous with exercise. Normal LV wall motion response to exercise. Normal augmentation of all wall segments without evidence of ischemia with stress. Left Ventricle Normal left ventricular size and systolic function with no regional wall motion abnormalities. Ejection fraction as calculated by Biplane Simpsons method is 65%. Final Signed by:DO De Souza Jason D Signed (Electronic Signature):11/19/2024 2:33 p Social History Social History Type Response Smoking Status Never smoked cigaret alfred Sex Male Sex Representation Male (finding) Patient Care team information Care Team Personnel Name: MD Saul, Rut Position: Physician - Family Med Member Role: Primary Care Provider Address: [address] [place] [address] Name: Jennifer Baron Joy Position: Pharmacist Schedule II Member Role: Pharmacy - Lifetime Care Team Related Persons Name: WILMER ARSHAD
--- OUTSIDE RECORDS SUMMARY | 2024-12-02 14:00 | External Medical Summary | Continuity of Care Document ---
Author Name Unknown Organization [address] Address [address] [place] [phone] Care Team Providers Care Privacy Attorney Name Role Phone Rut Hughes Primary Care Physician [phone] [facility] [id number] Date(s): 11/19/24 - 11/19/24 [place] [address], [address] [place] [address] [phone] Discharge Disposition: Home or Self Care Attending [...] COVID Vaccine Unspecified 08/02/23 Recorded SARS-CoV-2 mRNA (gxohowtdhck-gjfj-ohe) 04/28/22 Re corded tetanus/diphtheria/pertuss, acel (Tdap) 1 [...] mL, Note to Pharmacy: RSV vaccine, Pharmacy: [facility]/pharmacy #[id number] Start Date: 08/29/24 Status: Ordered Aspirin Low Dose Start: 08/02/10 2:30:05 PM EDT, 81 mg =, PO, Daily, Refills: 0, current medication from another provider Start Date: 08/02/10 Status: Ordered atorvastatin 20 mg oral tablet Start: 01/21/24 11:04:00 AM EDT, See Instructions, Disp# 90 tab, Refills: 3, TAKE 1 TABLET BY MOUTH EVERY DAY, Pharmacy: [facility]/pharmacy #[id number] Start Date: 01/21/24 Status: Ordered Coenzyme Q10 100 mg oral capsule Start: 05/25/11 8:30:00 AM EDT, 1 cap, PO, Daily, cap Start Date: 05/25/11 Status: Ordered Entresto 24 mg-26 mg oral tablet Start: 10/24/24 1:54:00 PM EST, 1 tab, PO, bid, Disp# 60 tab, Refills: 11, STOP LOS[facility]AN, Note to Pharmacy: STOP LOSARTAN, Pharmacy: [facility]/pharmacy #[id number] Start Date: 10/24/24 Status: Ordered fenofibrate 134 mg oral capsule Start: 01/15/24 10:17:00 AM EDT, 1 cap, PO, Daily, Disp# 90 cap, Refills: 3, Pharmacy: [id number] Start Date: 01/15/24 Status: Ordered loratadine 10 [...] qPM, Disp# 90 tab, Refills: 3, Pharmacy: [facility] [id number] Start Date: 09/23/24 Status: Ordered multivitamin Start: 08/02/10 2:29:58 PM EDT, Refills: 0, 1 po daily, current medication from another provider Start Date: 08/02/10 Status: Ordered One Touch Delica Plus (33G) Lancets Start: 01/01/23 8:15:00 AM EST, See Instructions, Disp# 100 each, Refills: 11, use to check blood sugar daily prn Dx: DM, Note to Pharmacy: Dx E11.9, Pharmacy: [facility]/pharmacy #[id number] Start Date: 01/01/23 Status: Ordered One Touch Ultra 2 Glucose Monitor Start: 10/12/20 10:51:00 AM EST, See Instructions, Disp# 1 kit, Refills: 0, test blood sugars once daily, Pharmacy: [facility]/pharmacy #[id number] Start Date: 10/12/20 Status: Ordered One Touch Ultra Blue Test Strips Start: 01/01/23 8:14:00 AM EST, See Instructions, Disp# 100 each, Refills: 11, home glucose check dailhy prn Dx: DM, Pharmacy: [facility]/pharmacy #[id number] Start Date: 01/01/23 Status: Ordered One Touch Ultra Test Strips 100 ct Start: 10/12/20 10:51:00 AM EST, See Instructions, Disp# 100 each, Refills: 3, test blood sugars once daily, Pharmacy: [facility]/pharmacy #[id number] Start Date: 10/12/20 Status: Ordered ProAir HFA 90 mcg/inh inhalation aerosol Start: 07/27/23 8:07:00 AM EDT, 2 puff, inhaled, qid, Disp# 1 each, Note to Pharmacy: or equivalent medicine at a cheaper smith, PRN: as needed for wheezing and cough, Pharmacy: [facility]/pharmacy #[id number] Start Date: 07/27/23 Status: Ordered spironolactone 25 mg oral tablet Start: 08/12/24 8:17:00 AM EDT, 1 tab, PO, Daily, Disp# 90 tab, Refills: 1, Pharmacy: [facility]/pharmacy #[id number] Start Date: 08/12/24 Status: Ordered Vitamin [...] 2Repeat colonoscopy in 5 years for surveillance. 9-Cmy-gtmiyzbj internal hemorrhoids -No specimens collected 4No evidence of diabetic retinopathy 5Final diagnosis See scanned report 6Specimens right and left apex, midprostate, base and anterior. 7mild cardiomegaly. parenchymal infiltrate left base 8No diabetic retinopathy 9internal hemorrhoids otherwise normal. Repeat in 5 years Arcenio Zaman LPN 10no macular degeneration 561495: WNL---repeat in 5 years due to FHx 12No evidence of diabetic retinopathy. 13No evidence of DM retinopathy Social History Social History Type Response Smoking Status Never smoked cigaret alfred Sex Male Sex Representation Male (finding) Patient Care team information Care Team Personnel Name: MD Saul, Rut Position: Physician - Family Med Member Role: Primary Care Provider Address: [facility] [address] [place] [address] Name: Jennifer Baron Joy Position: Pharmacist Schedule II Member Role: Pharmacy - Lifetime Care Team Related Persons Name: WILMER ARSHAD
--- OUTSIDE RECORDS SUMMARY | 2024-12-02 14:00 | External Medical Summary | Continuity of Care Document ---
Author Name Unknown Organization [facility] [address] [phone] Care Team Providers Care Visual Effects Artist Name Role Phone Rut Hughes Primary Care Physician [phone] [facility] [id number] Date(s): 11/20/24 - 11/20/24 [facility] [address] [address] [id number] Encounter Diagnosis Seborrheic keratoses(Discharge Diagnosis) - 11/20/24 History of melanoma(Discharge Diagnosis) - 11/20/24 Discharge Disposition: Home or Self Care Attending Physician: ANGELIQUE Mora Dawn M Allergies, Adverse Reactions, Alerts Substance Criticality Severity Reaction Reaction Severity Status penicillin itching Active Assessment and Plan Extracted from: Title:Dermatology Office Visit Note Author:Gary duffy PA-C, Dawn M Date:11/20/24 1.Seborrheic keratoses chronic andworsening -SEBORRHEIC KERATOSES - discussed the likely benign and genetic nature of these lesions._ watchful waiting. 2.History of melanoma Reviewed sun protection with SPF 30 or higher applied every 80 minutes and use of sun protective clothing and hat. Call with questions or concerns.3 months then can move to 6 month intervals. Patient in agreement with plan Immunizations Given and Recorded Vaccine Date Status [...] COVID Vaccine Unspecified 08/02/23 Recorded SARS-CoV-2 mRNA (znzizeohole-cgqj-qlu) 04/28/22 Re corded tetanus/diphtheria/pertuss, acel (Tdap) 1 [...] mL, Note to Pharmacy: RSV vaccine, Pharmacy: [facility]/pharmacy #[id number] Start Date: 08/29/24 Status: Ordered Aspirin Low Dose Start: 08/02/10 2:30:05 PM EDT, 81 mg =, PO, Daily, Refills: 0, current medication from another provider Start Date: 08/02/10 Status: Ordered atorvastatin 20 mg oral tablet Start: 01/21/24 11:04:00 AM EDT, See Instructions, Disp# 90 tab, Refills: 3, TAKE 1 TABLET BY MOUTH EVERY DAY, Pharmacy: [facility]/pharmacy #[id number] Start Date: 01/21/24 Status: Ordered Coenzyme Q10 100 mg oral capsule Start: 05/25/11 8:30:00 AM EDT, 1 cap, PO, Daily, cap Start Date: 05/25/11 Status: Ordered Entresto 24 mg-26 mg oral tablet Start: 10/24/24 1:54:00 PM EST, 1 tab, PO, bid, Disp# 60 tab, Refills: 11, STOP LOSARTAN, Note to Pharmacy: STOP LOSARTAN, Pharmacy: [facility]/pharmacy #[id number] Start Date: 10/24/24 Status: Ordered fenofibrate 134 mg oral capsule Start: 01/15/24 10:17:00 AM EDT, 1 cap, PO, Daily, Disp# 90 cap, Refills: 3, Pharmacy: [id number] Start Date: 01/15/24 Status: Ordered loratadine 10 [...] qPM, Disp# 90 tab, Refills: 3, Pharmacy: [id number] Start Date: 09/23/24 Status: Ordered multivitamin Start: 08/02/10 2:29:58 PM EDT, Refills: 0, 1 po daily, current medication from another provider Start Date: 08/02/10 Status: Ordered One Touch Delica Plus (33G) Lancets Start: 01/01/23 8:15:00 AM EST, See Instructions, Disp# 100 each, Refills: 11, use to check blood sugar daily prn Dx: DM, Note to Pharmacy: Dx E11.9, Pharmacy: [facility]/pharmacy #[id number] Start Date: 01/01/23 Status: Ordered One Touch Ultra 2 Glucose Monitor Start: 10/12/20 10:51:00 AM EST, See Instructions, Disp# 1 kit, Refills: 0, test blood sugars once daily, Pharmacy: [facility]/pharmacy #[id number] Start Date: 10/12/20 Status: Ordered One Touch Ultra Blue Test Strips Start: 01/01/23 8:14:00 AM EST, See Instructions, Disp# 100 each, Refills: 11, home glucose check dailhy prn Dx: DM, Pharmacy: [facility]/pharmacy #[id number] Start Date: 01/01/23 Status: Ordered One Touch Ultra Test Strips 100 ct Start: 10/12/20 10:51:00 AM EST, See Instructions, Disp# 100 each, Refills: 3, test blood sugars once daily, Pharmacy: [facility]/pharmacy #[id number] Start Date: 10/12/20 Status: Ordered ProAir HFA 90 mcg/inh inhalation aerosol Start: 07/27/23 8:07:00 AM EDT, 2 puff, inhaled, qid, Disp# 1 each, Note to Pharmacy: or equivalent medicine at a cheaper smith, PRN: as needed for wheezing and cough, Pharmacy: [facility]/pharmacy #[id number] Start Date: 07/27/23 Status: Ordered spironolactone 25 mg oral tablet Start: 08/12/24 8:17:00 AM EDT, 1 tab, PO, Daily, Disp# 90 tab, Refills: 1, Pharmacy: [facility]/pharmacy #[id number] Start Date: 08/12/24 Status: Ordered Vitamin B6 50 mg oral tablet Start: 04/10/17 8:07:00 AM EDT, 1 tab, PO, Daily, Disp# 30 tab, other Start Date: 04/10/17 Stop Date: 05/10/17 Status: Ordered Vitamin D3 25 mcg (1000 intl units) oral capsule Start: 10/14/24 2:06:00 PM EST, 1 cap, PO, Daily Start Date: 10/14/24 Status: Ordered Mental Status 11/20/24 Barriers to Learning one year None evide [...] Effective Dates Health Status Clinical Service Informant Seborrheic keratoses Discharge Diagnosis 11/20/24 History of melanoma Discharge Diagnosis 11/20/24 Procedures Procedure Date Related Diagnosis Body Site [...] 2Repeat colonoscopy in 5 years for surveillance. 9-Ldj-ddfusdjp internal hemorrhoids -No specimens collected 4No evidence of diabetic retinopathy 5Final diagnosis See scanned report 6Specimens right and left apex, midprostate, base and anterior. 7mild cardiomegaly. parenchymal infiltrate left base 8No diabetic retinopathy 9internal hemorrhoids otherwise normal. Repeat in 5 years L Corl,BUSINESS INTEGRATION ANALYST 10no macular degeneration [id number]: WNL---repeat in 5 years due to FHx 12No evidence of diabetic retinopathy. 13No evidence of DM retinopathy Social History Social History Type Response Smoking Status Never smoked cigaret alfred Sex Male Sex Representation Male (finding) Dermatology Outpatient Note * ANGELIQUE Mora Dawn M: PERFORM Event Display: Dermatology Outpt Note Authored Date: Chief Complaint skin check with no concerns; history of melanoma History of Present Illness LAYA ARSHAD [id number] old patient presenting today with a chief complaint ofskin check with no concerns; history of melanoma..Hedenies itching, bleeding, oozing, crusting or evolving lesions. Patient hasa past personal history of skin cancer: Malignant melanoma PT1a 0.1mm, No mitosesexcised stage 03/20/23 left cheek. Family history: parents and sister with skin cancer Patient uses sunscreen. Patient reports history of blistering sunburnsbut notanning beds. Grew up in [place]. 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 Prostate cancer. Works in [employer]. Heart monitor today Review of Systems Denies fever, chills, sweats, night sweats, weight loss, headache, visual change, stomach upset diarrhea and joint pain. Physical Exam Constitutional: Generally well appearing, well developed. Appears stated age. Ears, nose, throat and mouth: Lips, teeth, gums and tongue without deformity, lesion, mass, inflammation. Eyes: Conjunctivae and lids without noted inflammation, lesion, mass, deformity or drainage. Neck: Thyroid without enlargement, tenderness to palpation or mass. Cardiovascular: Swelling of the lower extremities mildly noted. Extremities pink, warm and dry. Extremities: Digits and nails without clubbing, cyanosis, petechiae, signs of ischemia, infectionor inflammation. Lymph: No anterior/posterior cervical lymphadenopathy, no axillary lymphadenopathy, Neurological / Psychiatric: Oriented to person, place and time. Appropriate mood and affect. No notable depression, anxiety or agitation. Complete skin exam was performed today including head, neck, chest, axillae, abdomen, back, bilateral upper and bilateral lower extremities. Palpation of the scalp, inspection of hair of scalp, eyebrows and finger and toenails was performed. The exam was within normal limits the exception of: PATIENT DECLINED ARTIST REPRESENTATIVE LEFT UPPER CHEST, RIGHT CHEEK, BACK-hyperkeratotic plaques and papules consistent with seborrheic keratoses No recurrent melanoma left cheek Assessment/Plan 1.Seborrheic keratoses chronic andworsening -SEBORRHEIC KERATOSES - discussed the likely benign and genetic natureof these lesions._ watchful waiting. 2.History of melanoma Reviewed sun protection with SPF 30 or higher applied every 80 minutes and use of sun protective clothing and hat. Call with questions or concerns.3 months then can move to 6 month intervals. Patient in agreement with plan Problem List/Past Medical History Ongoing Bilateral carpal [...] per episode in last year:2 Employment/School Status:Employed Description:manager [employer] Previous employment/school:BS-- at [employer]: Biology [...] and lung mets Electronic Signature on File Electronically Reviewed/Signed by: SEPIDEH Grijalva Author Signature Dt/Tm:11/20/2024 11:26 AM Department of Family Medicine Department of Dermatology [facility] Patient Care team information Care Team Personnel Name: MD Hughes Dongsheng Position: Physician - Family Med Member Role: Primary Care Provider Address: [facility] [address] Name: Jennifer Baron Joy Position: Pharmacist Schedule II Member Role: Pharmacy - Lifetime Care Team Related Persons Name: WILMER ARSHAD"
--- OUTSIDE RECORDS SUMMARY | 2024-12-02 14:00 | External Medical Summary | Continuity of Care Document ---
Author Name Unknown Organization [facility] [address] Address [address] [place], [place] [id number] Care Team Providers Care Channel Marketing Manager Name Role Phone Rut Hughes Primary Care Physician [phone] Encounter [facility] [id number] Date(s): 10/31/24 - 10/31/24 [facility] [address] [phone] Encounter Diagnosis Other forms of dyspnea(Final) - Other ill-defined heart diseases(Final) - Discharge Disposition: Home or Self Care Attending [...] COVID Vaccine Unspecified 08/02/23 Recorded SARS-CoV-2 mRNA ([id number]) 04/28/22 Re corded tetanus/diphtheria/pertuss, acel (Tdap) 1 [...] mL, Note to Pharmacy: RSV vaccine, Pharmacy: [facility]/pharmacy #[id number] Start Date: 08/29/24 Status: Ordered Aspirin Low Dose Start: 08/02/10 2:30:05 PM EDT, 81 mg =, PO, Daily, Refills: 0, current medication from another provider Start Date: 08/02/10 Status: Ordered atorvastatin 20 mg oral tablet Start: 01/21/24 11:04:00 AM EDT, See Instructions, Disp# 90 tab, Refills: 3, TAKE 1 TABLET BY MOUTH EVERY DAY, Pharmacy: [facility]/pharmacy #[id number] Start Date: 01/21/24 Status: Ordered Coenzyme Q10 100 mg oral capsule Start: 05/25/11 8:30:00 AM EDT, 1 cap, PO, Daily, cap Start Date: 05/25/11 Status: Ordered Entresto 24 mg-26 mg oral tablet Start: 10/24/24 1:54:00 PM EST, 1 tab, PO, bid, Disp# 60 tab, Refills: 11, STOP LOSARTAN, Note to Pharmacy: STOP LOSARTAN, Pharmacy: [facility]/pharmacy #[id number] Start Date: 10/24/24 Status: Ordered fenofibrate 134 mg oral capsule Start: 01/15/24 10:17:00 AM EDT, 1 cap, PO, Daily, Disp# 90 cap, Refills: 3, Pharmacy: [id number] Start Date: 01/15/24 Status: Ordered loratadine 10 [...] qPM, Disp# 90 tab, Refills: 3, Pharmacy: [id number] Start Date: 09/23/24 Status: Ordered multivitamin Start: 08/02/10 2:29:58 PM EDT, Refills: 0, 1 po daily, current medication from another provider Start Date: 08/02/10 Status: Ordered One Touch Delica Plus (33G) Lancets Start: 01/01/23 8:15:00 AM EST, See Instructions, Disp# 100 each, Refills: 11, use to check blood sugar daily prn Dx: DM, Note to Pharmacy: Dx E11.9, Pharmacy: [facility]/pharmacy #[id number] Start Date: 01/01/23 Status: Ordered One Touch Ultra 2 Glucose Monitor Start: 10/12/20 10:51:00 AM EST, See Instructions, Disp# 1 kit, Refills: 0, test blood sugars once daily, Pharmacy: [facility]/pharmacy #[id number] Start Date: 10/12/20 Status: Ordered One Touch Ultra Blue Test Strips Start: 01/01/23 8:14:00 AM EST, See Instructions, Disp# 100 each, Refills: 11, home glucose check dailhy prn Dx: DM, Pharmacy: [facility]/pharmacy #[id number] Start Date: 01/01/23 Status: Ordered One Touch Ultra Test Strips 100 ct Start: 10/12/20 10:51:00 AM EST, See Instructions, Disp# 100 each, Refills: 3, test blood sugars once daily, Pharmacy: [facility]/pharmacy #[id number] Start Date: 10/12/20 Status: Ordered ProAir HFA 90 mcg/inh inhalation aerosol Start: 07/27/23 8:07:00 AM EDT, 2 puff, inhaled, qid, Disp# 1 each, Note to Pharmacy: or equivalent medicine at a cheaper smith, PRN: as needed for wheezing and cough, Pharmacy: [facility]/pharmacy #[id number] Start Date: 07/27/23 Status: Ordered spironolactone 25 mg oral tablet Start: 08/12/24 8:17:00 AM EDT, 1 tab, PO, Daily, Disp# 90 tab, Refills: 1, Pharmacy: [facility]/pharmacy #[id number] Start Date: 08/12/24 Status: [...] 2Repeat colonoscopy in 5 years for surveillance. 5-Blp-btdjvmat internal hemorrhoids -No specimens collected 4No evidence of diabetic retinopathy 5Final diagnosis See scanned report 6Specimens right and left apex, midprostate, base and anterior. 7mild cardiomegaly. parenchymal infiltrate left base 8No diabetic retinopathy 9internal hemorrhoids otherwise normal. Repeat in 5 years L Corl,ACCOUNT DEVELOPMENT EXECUTIVE 10no macular degeneration 515319: WNL---repeat in 5 years due to FHx 12No evidence of diabetic retinopathy. 13No evidence of DM retinopathy Results Laboratory List Name Date Basic Metabolic Panel (BASIC METAB PANEL ) 10/31/24 Most recent to oldest [Reference Range]: 1 eGFR CKD-EPI [>60 mL/min/1.73 m2] 79 mL/ min/1.73 m2 1 (10/31/24 7:37 AM) Estimated CrCl 69.27 mL/min (10/31/24 8:04 AM) Anion Gap [5-14 mmol/L] 9 mmol/L (10/31/24 7:37 AM) BUN [7-20 mg/dL] 25 mg/dL *HI* (10/31/24 7:37 AM) Ca [8.4-10.2 mg/dL] 9.7 mg/dL (10/31/24 7:37 AM) Cl- [96-107 mmol/L] 104 mmol/L (10/31/24 7:37 AM) HCO3 [22-30 mmol/L] 28 mmol/L (10/31/24 7:37 AM) Cret [0.70-1.30 mg/dL] 1.01 mg/dL (10/31/24 7:37 AM) Glu [74-106 mg/dL] 87 mg/dL (10/31/24 7:37 AM) K [3.5-5.1 mmol/L] 3.9 mmol/L (10/31/24 7:37 AM) Na [137-145 mmol/L] 141 mmol/L (10/31/24 7:37 AM) 1Result Comment: Testing Performed By: Dept of Pathology [facility] [place], [address] [place] [id number] Social History Social History Type Response Smoking Status Never smoked cigaret alfred Sex Male Sex Representation Male (finding) Patient Care team information Care Team Personnel Name: MD Saul, Rut Position: Physician - Family Med Member Role: Primary Care Provider Address: [facility] [address] Name: Jennifer Baron Joy Position: Pharmacist Schedule II Member Role: Pharmacy - Lifetime Care Team Related Persons Name: WILMER ARSHAD
--- OUTSIDE RECORDS SUMMARY | 2024-12-02 14:00 | External Medical Summary | Continuity of Care Document ---
Author Name Unknown Organization [facility] [address] [facility] [address] [place], [place] [id number] Care Team Providers Care Dental Laboratory Manager Name Role Phone Hughes Rut Primary Care Physician [phone] [id number] Date(s): 10/14/24 - 10/14/24 [facility] [address], [address] [place] [address] [phone] Encounter Diagnosis FRANCIS (dyspnea on exertion)(Discharge Diagnosis) - 10/14/24 Diastolic dysfunction(Discharge Diagnosis) - 10/14/24 Elevated left ventricular end-diastolic pressure(Discharge Diagnosis) - 10/14/24 Discharge Disposition: Home or Self Care Attending Physician: LINDA Salas Sarah A Allergies, Adverse Reactions, Alerts Substance Criticality Severity Reaction Reaction Severity Status penicillin itching Active Assessment and Plan Extracted from: Title:Cardiology Office Visit Note Author:LINDA Mcgovern rd, Sarah A Date:10/14/24 Impression: 1. Fatigue and dyspnea 2. Echo [...] HLD 4. 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 Bustamante's echo was reviewed with him. He does have elevated left ventricular end diastolic pressures as well as grade II diastolic dysfunction. His sob my be relieved with diuresis to relieve those elevated pressures. He will start Lasix 20 mg daily and in a week we will touch base to see how he's feeling. If he does not feel any improvement with diuresis then I would consider a stress test. He'll return to the clinic in 1 month Immunizations Given and Recorded Vaccine Date Status [...] COVID Vaccine Unspecified 08/02/23 Recorded SARS-CoV-2 mRNA (ehffzvpwuet-nwkn-ebm) 04/28/22 Re corded tetanus/diphtheria/pertuss, acel (Tdap) 1 [...] mL, Note to Pharmacy: RSV vaccine, Pharmacy: [id number] Start Date: 08/29/24 Status: Ordered Aspirin Low Dose Start: 08/02/10 2:30:05 PM EDT, 81 mg =, PO, Daily, Refills: 0, current medication from another provider Start Date: 08/02/10 Status: Ordered atorvastatin 20 mg oral tablet Start: 01/21/24 11:04:00 AM EDT, See Instructions, Disp# 90 tab, Refills: 3, TAKE 1 TABLET BY MOUTH EVERY DAY, Pharmacy: [id number] Start Date: 01/21/24 Status: Ordered Coenzyme Q10 100 mg oral capsule Start: 05/25/11 8:30:00 AM EDT, 1 cap, PO, Daily, cap Start Date: 05/25/11 Status: Ordered fenofibrate 134 mg oral capsule Start: 01/15/24 10:17:00 AM EDT, 1 cap, PO, Daily, Disp# 90 cap, Refills: 3, Pharmacy: [id number] Start Date: 01/15/24 Status: Ordered furosemide 20 mg oral tablet Start: 10/14/24 2:24:00 PM EST, 1 tab, PO, Daily, Disp# 7 tab, Refills: 0, [id number] Start Date: 10/14/24 Status: Ordered loratadine 10 mg oral capsule Start: 05/14/19 3:27:00 PM EDT, 1 cap, PO, Daily Start Date: 05/14/19 Status: Ordered losartan 100 mg oral tablet Start: 12/31/23 7:51:00 AM EST, 1 tab, PO, Daily, Disp# 90 tab, Refills: 3, Pharmacy: [id number] Start Date: 12/31/23 Status: Ordered methIMAzole 5 mg oral tablet Start: 03/24/19 9:08:00 AM EDT, See Instructions, Disp# 30 tab, 1.5 tab PO Daily, per Endo, other Start Date: 03/24/19 Status: Ordered montelukast 10 mg oral tablet Start: 09/23/24 11:01:00 AM EST, 1 tab, PO, qPM, Disp# 90 tab, Refills: 3, Pharmacy: [id number] Start Date: 09/23/24 Status: Ordered multivitamin Start: 08/02/10 2:29:58 PM EDT, Refills: 0, 1 po daily, current medication from another provider Start Date: 08/02/10 Status: Ordered One Touch Delica Plus (33G) Lancets Start: 01/01/23 8:15:00 AM EST, See Instructions, Disp# 100 each, Refills: 11, use to check blood sugar daily prn Dx: DM, Note to Pharmacy: Dx E11.9, Pharmacy: [facility]/pharmacy #[id number] Start Date: 01/01/23 Status: Ordered One Touch Ultra 2 Glucose Monitor Start: 10/12/20 10:51:00 AM EST, See Instructions, Disp# 1 kit, Refills: 0, test blood sugars once daily, Pharmacy: [facility]/pharmacy #[id number] Start Date: 10/12/20 Status: Ordered One Touch Ultra Blue Test Strips Start: 01/01/23 8:14:00 AM EST, See Instructions, Disp# 100 each, Refills: 11, home glucose check dailhy prn Dx: DM, Pharmacy: [facility]/pharmacy #[id number] Start Date: 01/01/23 Status: Ordered One Touch Ultra Test Strips 100 ct Start: 10/12/20 10:51:00 AM EST, See Instructions, Disp# 100 each, Refills: 3, test blood sugars once daily, Pharmacy: [facility]/pharmacy #[id number] Start Date: 10/12/20 Status: Ordered ProAir HFA 90 mcg/inh inhalation aerosol Start: 07/27/23 8:07:00 AM EDT, 2 puff, inhaled, qid, Disp# 1 each, Note to Pharmacy: or equivalent medicine at a cheaper smith, PRN: as needed for wheezing and cough, Pharmacy: [facility]/pharmacy #[id number] Start Date: 07/27/23 Status: Ordered spironolactone 25 mg oral tablet Start: 08/12/24 8:17:00 AM EDT, 1 tab, PO, Daily, Disp# 90 tab, Refills: 1, Pharmacy: [facility]/pharmacy #[id number] Start Date: 08/12/24 Status: Ordered Vitamin B6 50 mg oral tablet Start: 04/10/17 8:07:00 AM EDT, 1 tab, PO, Daily, Disp# 30 tab, other Start Date: 04/10/17 Stop Date: 05/10/17 Status: Ordered Vitamin D3 25 mcg (1000 intl units) oral capsule Start: 10/14/24 2:06:00 PM EST, 1 cap, PO, Daily Start Date: 10/14/24 Status: Ordered Mental Status 10/14/24 Barriers to Learning one year None evide nt Mandatory Health Literacy Documentation Yes Health Literacy Communication Barriers N ever Primary Language Bengali Problem List Condition Confirmation Course Effective Dates [...] Effective Dates Health Status Clinical Service Informant FRANCIS (dyspnea on exertion) Discharge Diagnosis 10/14/24 Non-Specified Diastolic dysfunction Discharge Diagnosis 10/14/24 Non-Specified Elevated left ventricular end-diastolic pressure Discharge Diagnosis 10/14/24 Non-Specified Procedures Procedure Date Related Diagnosis Body Site [...] 2Repeat colonoscopy in 5 years for surveillance. 7-Vpf-pgyadgbc internal hemorrhoids -No specimens collected 4No evidence of diabetic retinopathy 5Final diagnosis See scanned report 6Specimens right and left apex, midprostate, base and anterior. 7mild cardiomegaly. parenchymal infiltrate left base 8No diabetic retinopathy 9internal hemorrhoids otherwise normal. 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 13No evidence of DM retinopathy Vital Signs Most recent to oldest [Reference Range]: 1 Patient Weight 89 kg (10/14/24 2:09 PM) Heart Rate 78 bpm (10/14/24 2:09 PM) Respiratory Rate 18 br/min (10/14/24 2:09 PM) Blood Pressure 120/62mmHg (10/14/24 2:09 PM) BP Location # 1 Left Arm (10/14/24 2:09 PM) Social History Social History Type Response Smoking Status Never smoked cigaret alfred Sex Male Sex Representation Male (finding) Cardiology Outpatient Note * LINDA Salas Sarah A: PERFORM Event Display: Cardiology Outpt Note Authored Date: [id number] Primary Care Provider MD Saul, Rut Chief Complaint - F/U not much change in fatigue, the leg swelling has improved denies resent chest pain/ tightness, no heart racing or Palpations, SOB ,No resent ER visits no unusual bleeding History of Present Illness Mr. Bustamante presents for follow up of his history of dyspnea on exertion. His symptoms are unchanged. He continues to feel short of breath with higher levels of exertion likeheavier chores. Heis keeping up withhis 2-year-old granddaughteras he and his are the primarybabysitters for her. He also calledqueenie deleon out to the curb and did okay with that. No chest pain. No edema Review of Systems All other systems reviewed and negative except as discussed in the HPI Physical Exam Vitals & Measurements HR:78(Monitored) RR:18 BP:120/62 SpO2:96% WT:89.000kg(Dosing) WT:89kg Physical Examination General: Alert and oriented, No acute distress. Neck: No jugular venous distention. Respiratory: Lungs are clear to auscultation, Respirations are non-labored. Cardiovascular: Normal rate, Regular rhythm,3/6 rusb systolic murmur, No edema. Integumentary: Warm, Dry, Kline Neurologic: Alert, Oriented. 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 Bustamante's echo was reviewed with him. He does have elevated left ventricular end diastolic pressures as well as grade II diastolic dysfunction. His sob my be relieved with diuresis to relieve thoseelevated pressures. He will start Lasix 20 mg daily and in a week we will touch base to see how he's feeling. If he does not feel any improvement with diuresis then I would consider a stress test. He'll return to the clinic in 1 month Problem List/Past Medical History Ongoing Bilateral carpal [...] UNSPECIFIED Procedure/Surgical History Shave biopsy| Service Date: 4MOHS 1 STAGE T/A/L| Service Date: 3Punch biopsy [...] mg oral capsule), 1 cap, PO, Daily furosemide(furosemide 20 mg oral tablet), 20 mg= 1 tab, PO, Daily loratadine(loratadine 10 mg oral capsule), 10 mg= 1 cap, PO, Daily losartan(losartan 100 mg oral tablet), 1 tab, PO, Daily methIMAzole(methIMAzole 5 mg oral tablet), See Instructions montelukast(montelukast 10 mg oral tablet), 1 tab, PO, qPM multivitamin pyridoxine(Vitamin B6 50 mg oral tablet), 50 mg= 1 tab, PO, Daily RSV vaccine, preF A-preF B, recombinant(Abrysvo preservative-free intramuscular injection), 0.5 mL,IM, ONCE spironolactone(spironolactone 25 mg oral tablet), 1 tab, PO, Daily, 1 refills ubiquinone(Coenzyme Q10 100 mg oral capsule), 1 cap, PO, Daily Allergies penicillinitching Social History Smoking Status Never smoked cigarettes Alcohol Type:Beer Frequency:1-2 times per month Average drinks per episode in last year:2 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 [employer] Previous employment/school:BS-- at [employer]: [...] Signature on File CC: Rut Hughes MD [address] [address] Electronically Reviewed/Signed by: LINDA Zurita Author Signature Dt/Tm:10/14/2024 02:45 PM [facility] Patient Care team information Care Team Personnel Name: MD Hughes Dongsheng Position: Physician - Family Med Member Role: Primary Care Provider Address: [address] [place] [address] Name: Jennifer Baron Joy Position: Pharmacist Schedule II Member Role: Pharmacy - Lifetime Care Team Related Persons Name: WILMER BUSTAMANTE"
--- OUTSIDE RECORDS SUMMARY | 2024-12-02 14:01 | External Medical Summary | Continuity of Care Document ---
Author Name Unknown Organization [facility] [address] [place], [place] [id number] Care Team Providers Care Loss Control Technician Name Role Phone Rut Hughes Primary Care Physician [phone] [facility] [id number] Date(s): 09/26/24 - 09/26/24 [facility] [address] [place] [address] [address] [phone] Encounter Diagnosis Pain in unspecified joint(Final) - Polyneuropathy, unspecified(Final) - Other fatigue(Final) - Thyrotoxicosis, unspecified without thyrotoxic crisis or storm(Final) - Discharge Disposition: Home or Self Care Attending Physician: MD Hughes Dongsheng Referring Physician: MD Hughes Dongsheng Allergies, Adverse Reactions, Alerts Substance Criticality Severity [...] COVID Vaccine Unspecified 08/02/23 Recorded SARS-CoV-2 mRNA ([id number]) 04/28/22 Re corded tetanus/diphtheria/pertuss, acel (Tdap) 1 [...] mL, Note to Pharmacy: RSV vaccine, Pharmacy: [facility]/pharmacy #[id number] Start Date: 08/29/24 Status: Ordered Aspirin Low Dose Start: 08/02/10 2:30:05 PM EDT, 81 mg =, PO, Daily, Refills: 0, current medication from another provider Start Date: 08/02/10 Status: Ordered atorvastatin 20 mg oral tablet Start: 01/21/24 11:04:00 AM EDT, See Instructions, Disp# 90 tab, Refills: 3, TAKE 1 TABLET BY MOUTH EVERY DAY, Pharmacy: [facility]/pharmacy #[id number] Start Date: 01/21/24 Status: Ordered Coenzyme Q10 100 mg oral capsule Start: 05/25/11 8:30:00 AM EDT, 1 cap, PO, Daily, cap Start Date: 05/25/11 Status: Ordered fenofibrate 134 mg oral capsule Start: 01/15/24 10:17:00 AM EDT, 1 cap, PO, Daily, Disp# 90 cap, Refills: 3, Pharmacy: [facility] [id number] Start Date: 01/15/24 Status: Ordered loratadine 10 mg oral capsule Start: 05/14/19 3:27:00 PM EDT, 1 cap, PO, Daily Start Date: 05/14/19 Status: Ordered losartan 100 mg oral tablet Start: 12/31/23 7:51:00 AM EST, 1 tab, PO, Daily, Disp# 90 tab, Refills: 3, Pharmacy: [facility] [id number] Start Date: 12/31/23 Status: Ordered methIMAzole 5 mg oral tablet Start: 03/24/19 9:08:00 AM EDT, See Instructions, Disp# 30 tab, 1.5 tab PO Daily, per Endo, other Start Date: 03/24/19 Status: Ordered montelukast 10 mg oral tablet Start: 09/23/24 11:01:00 AM EST, 1 tab, PO, qPM, Disp# 90 tab, Refills: 3, Pharmacy: [facility] [id number] Start Date: 09/23/24 Status: Ordered multivitamin Start: 08/02/10 2:29:58 PM EDT, Refills: 0, 1 po daily, current medication from another provider Start Date: 08/02/10 Status: Ordered One Touch Delica Plus (33G) Lancets Start: 01/01/23 8:15:00 AM EST, See Instructions, Disp# 100 each, Refills: 11, use to check blood sugar daily prn Dx: DM, Note to Pharmacy: Dx E11.9, Pharmacy: [facility]/pharmacy #[id number] Start Date: 01/01/23 Status: Ordered One Touch Ultra 2 Glucose Monitor Start: 10/12/20 10:51:00 AM EST, See Instructions, Disp# 1 kit, Refills: 0, test blood sugars once daily, Pharmacy: [facility]/pharmacy #[id number] Start Date: 10/12/20 Status: Ordered One Touch Ultra Blue Test Strips Start: 01/01/23 8:14:00 AM EST, See Instructions, Disp# 100 each, Refills: 11, home glucose check dailhy prn Dx: DM, Pharmacy: [facility]/pharmacy #[id number] Start Date: 01/01/23 Status: Ordered One Touch Ultra Test Strips 100 ct Start: 10/12/20 10:51:00 AM EST, See Instructions, Disp# 100 each, Refills: 3, test blood sugars once daily, Pharmacy: [facility]/pharmacy #[id number] Start Date: 10/12/20 Status: Ordered ProAir HFA 90 mcg/inh inhalation aerosol Start: 07/27/23 8:07:00 AM EDT, 2 puff, inhaled, qid, Disp# 1 each, Note to Pharmacy: or equivalent medicine at a cheaper smith, PRN: as needed for wheezing and cough, Pharmacy: [facility]/pharmacy #[id number] Start Date: 07/27/23 Status: Ordered spironolactone 25 mg oral tablet Start: 08/12/24 8:17:00 AM EDT, 1 tab, PO, Daily, Disp# 90 tab, Refills: 1, Pharmacy: [facility]/pharmacy #[id number] Start Date: 08/12/24 Status: Ordered Vitamin B6 50 mg oral tablet Start: 04/10/17 8:07:00 AM EDT, 1 tab, PO, Daily, Disp# 30 tab, other Start Date: 04/10/17 Stop Date: 05/10/17 Status: Ordered Problem List Condition Confirmation Course [...] T2DM (type 2 diabetes mellitus) Confirmed Active Weight disorder Confirmed Active Wheezing [...] 2Repeat colonoscopy in 5 years for surveillance. 1-Hzg-duqwdxhv internal hemorrhoids -No specimens collected 4No evidence of diabetic retinopathy 5Final diagnosis See scanned report 6Specimens right and left apex, midprostate, base and anterior. 7mild cardiomegaly. parenchymal infiltrate left base 8No diabetic retinopathy 9internal hemorrhoids otherwise normal. Repeat in 5 years L Corl,[employer]ECT REPAIRER 10no macular degeneration [id number]: WNL---repeat in 5 years due to FHx 12No evidence of diabetic retinopathy. 13No evidence of DM retinopathy Results Laboratory List Name Date C Reactive Protein, Quantitation (CRP QU ANTITATION) 09/26/24 Complete Blood Count w Differential (CBC ,DIFFH) 09/26/24 Comprehensive Metabolic Panel (COMP META B PANEL) 09/26/24 Creatine Kinase, Total (CK) 09/26/24 Erythrocyte Sedimentation Rate (SEDIMENT ATION RATE) 09/26/24 Free T3 (T3, FREE) 09/26/24 Lyme Antibodies, IgG and IgM (LYME ABS I GG,IGM) 09/26/24 NT-Pro BNP 09/26/24 Rheumatoid Factor (RHEUMATOID FACTOR) T4, Free (T4, FREE) 09/26/24 Thyroid Stimulating Hormone (TSH) Vitamin D, 25-Hydroxy Level, Total (25-H YDROXY VITAMIN D) 09/26/24 Most recent to oldest [Reference Range]: 1 CReacProt [<0.50 mg/dL] <0.30 mg/dL (09/26/24 7:05 AM) eGFR CKD-EPI [>60 mL/min/1.73 m2] >90 mL /min/1.73 m2 1 (09/26/24 7:05 AM) RF. [<14 I.U./mL] <10 I.U./mL (09/26/24 7:05 AM) Lyme Antibodies, IgG/IgM [NEG] NEGATIVE *Unknown* (09/26/24 705 AM) Vitamin D, 25-Hydroxy [30-100 ng/mL] 23 ng/mL 2 *LOW* (09/26/24 7:05 AM) BNP, NT-Pro [<125 pg/mL] 84 pg/mL (09/26/24 7:05 AM) Estimated CrCl 80.30 mL/min (09/26/24 7:38 AM) MPV [9.0-12.2 fL] 9.7 fL (09/26/24 7:05 AM) Immature Gran% 0.7 % (09/26/24 7:05 AM) Neut% 74.0 % (09/26/24 7:05 AM) Lymph% 10.7 % (09/26/24 7:05 AM) [place]% 9.0 % (09/26/24 7:05 AM) Baso% 0.7 % (09/26/24 7:05 AM) Eos% 4.9 % (09/26/24 7:05 AM) Immat Gran, Abs [0-0.4 K/uL] 0.04 K/uL (09/26/24 7:05 AM) Neut, Abs [2.0-7.7 K/uL] 4.37 K/uL (09/26/24 7:05 AM) Lymph, Abs [1.0-3.4 K/uL] 0.63 K/uL *LOW* (09/26/24 7:05 AM) [place], Abs [0-1.0 K/uL] 0.53 K/uL (09/26/24 7:05 AM) Baso, Abs [0-0.1 K/uL] 0.04 K/uL (09/26/24 7:05 AM) Eos, Abs [0-0.5 K/uL] 0.29 K/uL (09/26/24 7:05 AM) Type of Diff: AUTO *Unknown* (09/26/24 705 AM) RDW [11.5-14.2 %] 13.5 % (09/26/24 7:05 AM) Anion Gap [5-14 mmol/L] 11 mmol/L (09/26/24 7:05 AM) Alb [3.5-5.0 g/dL] 4.3 g/dL (09/26/24 7:05 AM) Alk Phos [38-126 unit/L] 81 unit/L (09/26/24 7:05 AM) ALT [<50 unit/L] 24 unit/L (09/26/2405 AM) AST [15-46 unit/L] 22 unit/L (09/26/24 7:05 AM) BUN [7-20 mg/dL] 22 mg/dL *HI* (09/26/24:05 AM) Ca [8.4-10.2 mg/dL] 9.9 mg/dL (09/26/24 7:05 AM) CPK [39-308 unit/L] 135 unit/L (09/26/24 7:05 AM) Cl- [96-107 mmol/L] 109 mmol/L *HI* (09/26/24 7:05 AM) HCO3 [22-30 mmol/L] 24 mmol/L (09/26/24 7:05 AM) Cret [0.70-1.30 mg/dL] 0.89 mg/dL (09/26/24 7:05 AM) ESR [0-40 mm/hr] 7 mm/hr 3 (09/26/24 7:05 AM) Glu [74-106 mg/dL] 107 mg/dL *HI* (09/26/24 7:05 AM) Hct [39-48 %] 41.5 % (09/26/24 7:05 AM) Hgb [13.0-17.0 g/dL] 13.6 g/dL (09/26/24 7:05 AM) K [3.5-5.1 mmol/L] 4.5 mmol/L (09/26/24 7:05 AM) MCH [28-33 pg] 29.5 pg (09/26/24 7:05 AM) MCHC [32-36 g/dL] 32.8 g/dL (09/26/24 7:05 AM) MCV [81-96 fL] 90.0 fL (09/26/24 7:05 AM) Na [137-145 mmol/L] 144 mmol/L (09/26/24 7:05 AM) Plts [150-350 K/uL] 290 K/uL (09/26/24 7:05 AM) RBC [4.40-5.60 M/uL] 4.61 M/uL (09/26/24 7:05 AM) Free T4 [0.70-1.48 ng/dL] 0.99 ng/dL 4 (09/26/24 7:05 AM) T Bili [0.2-1.3 mg/dL] 0.6 mg/dL (09/26/24 7:05 AM) Prot [6.3-8.2 g/dL] 7.2 g/dL (09/26/24 7:05 AM) TSH [0.47-4.68 uIU/mL] 2.44 uIU/mL 5 (09/26/24 7:05 AM) WBC [4.0-10.4 K/uL] 5.90 K/uL (09/26/24 7:05 AM) Free T3 [2.0-4.4 pg/mL] 3.6 pg/mL (09/26/24 7:05 AM) 1Result Comment: Testing Performed By: Dept of Pathology [facility] [place], [place] [facility] [place] [address] 2Result Comment: Deficiency: <20 ng/mL Insufficiency: 21-29 ng/mL Sufficiency: 30-100 ng/mL Potenial Toxicity: >150 ng/mL 3Result Comment: Testing Performed By: Dept of Pathology [facility] [place], [place] [address] 4Result Comment: Testing Performed By: Dept of Pathology [facility] [place], [place] [address] 5Result Comment: Testing Performed By: Dept of Pathology [facility] [place], [address] [place], [place] [address] Social History Social History Type Response Smoking Status Never smoked cigaret alfred Sex Male Sex Representation Male (finding) Patient Care team information Care Team Personnel Name: MD Saul, Rut Position: Physician - Family Med Member Role: Primary Care Provider Address: [facility] [address] [address] Name: Jennifer Baron Joy Position: Pharmacist Schedule II Member Role: Pharmacy - Lifetime Care Team Related Persons Name: WILMER ARSHAD
--- OUTSIDE RECORDS SUMMARY | 2024-12-02 14:01 | External Medical Summary | Continuity of Care Document ---
Author Name Unknown Organization [facility] [id number] [place] [address] [phone] Care Team Providers Care Field Sales Agent Name Role Phone Rut Hughes Primary Care Physician [phone] [id number] Date(s): 10/06/24 - 10/06/24 [facility] [address] [address] [place] [phone] Encounter Diagnosis T2DM (type 2 diabetes mellitus)(Discharge Diagnosis) - 10/06/24 Obesity(Discharge Diagnosis) - 10/06/24 HTN - Hypertension(Discharge Diagnosis) - 10/06/24 Hyperlipidemia(Discharge Diagnosis) - 10/06/24 Hyperthyroidism(Discharge Diagnosis) - 10/06/24 Body mass index [BMI] 31.0-31.9, adult(Discharge Diagnosis) - 10/06/24 Vitamin D insufficiency(Discharge Diagnosis) - 10/06/24 Discharge Disposition: Home or Self Care Attending Physician: MD Hughes Dongsheng Allergies, Adverse Reactions, Alerts Substance Criticality Severity Reaction Reaction Severity Status penicillin itching Active Assessment and Plan Extracted from: Title:Office Visit Note Author:MD Hughes Dongsh eng Date:10/06/24 1.T2DM (type 2 diabetes me llitus) STATUS: Chronic stable: x A1c = 5.8 Chronic uncontrolled: Acute uncomplicated: Acute illness with systemic symptoms: Undiagnosed new problems with uncertain prognosis: Chronic illnesses with exacerbation, progression, or side effects of treatment: 1 acute complicated injury: DATA: Review of prior external note(s) from each unique source: Review of the result(s) of each unique test: x a1c, cmp Ordering of each unique test: x Assessment requiring independent historian(s): GOAL: a1c<7 PLAN: Declined GLP1. Hep B UTD. stoppedmetformin. Diet, exercise, and wt loss - sheet given. f/u DM edu. Home glu prn.ordered a1c, UACR 2.Obesity STATUS: Chronic stable: Chronic uncontrolled: x Acute uncomplicated: Acute illness with systemic symptoms: Undiagnosed new problems with uncertain prognosis: Chronic illnesses with exacerbation, progression, or side effects of treatment: 1 acute complicated injury: DATA: Review of prior external note(s) from each unique source: Review of the result(s) of each unique test: tsh Ordering of each unique test: Assessment requiring independent historian(s): GOAL: 5% loss PLAN: Declined GLP1 and referral. Diet and exercise 3.HTN - Hypertension STATUS: Chronic stable: Chronic uncontrolled: x a bit high but looks ok at home Acute uncomplicated: Acute illness with systemic symptoms: Undiagnosed new problems with uncertain prognosis: Chronic illnesses with exacerbation, progression, or side effects of treatment: 1 acute complicated injury: DATA: Review of prior external note(s) from each unique source: Review of the result(s) of each unique test: x cmp, Echo Ordering of each unique test: Assessment requiring independent historian(s): GOAL: bp<140/90 PLAN: stoppedamlodipine due to leg swelling.HCTZ - urinary freq. AvoidBBdue to asthma. continue losartanandspironolactone - declined to increase to BID for the latter. Home BP QID and let me know if >140/90. DASH and exercise and wt loss. 4.Hyperlipidemia STATUS: Chronic stable: x at goal Chronic uncontrolled: Acute uncomplicated: Acute illness with systemic symptoms: Undiagnosed new problems with uncertain prognosis: Chronic illnesses with exacerbation, progression, or side effects of treatment: 1 acute complicated injury: DATA: Review of prior external note(s) from each unique source: Review of the result(s) of each unique test: x flp Ordering of each unique test: Assessment requiring independent historian(s): GOAL: prevent ascvd/LDL<70 PLAN: continueLipitor and fenofibrate. Very rare alcohol and no NSAIDs. ordered flp 5.Hyperthyroidism STATUS: Chronic stable: x Chronic uncontrolled: Acute uncomplicated: Acute illness with systemic symptoms: Undiagnosed new problems with uncertain prognosis: Chronic illnesses with exacerbation, progression, or side effects of treatment: 1 acute complicated injury: DATA: Review of prior external note(s) from each unique source: Review of the result(s) of each unique test: x cbc/lft, TSH Ordering of each unique test: Assessment requiring independent historian(s): GOAL: Resolution PLAN: on methimazole. f/u endo 6.Vitamin D insufficiency STATUS: Chronic stable: Chronic uncontrolled: x Acute uncomplicated: Acute illness with systemic symptoms: Undiagnosed new problems with uncertain prognosis: Chronic illnesses with exacerbation, progression, or side effects of treatment: 1 acute complicated injury: DATA: Review of prior external note(s) from each unique source: Review of the result(s) of each unique test: vit D Ordering of each unique test: Assessment requiring independent historian(s): GOAL: Resolution PLAN: will increase vitD by 1,000 units daily. call prn. f/u4 mos Time spent: Pre-visit planning/chart review: 6 minutes Oavd-cp-gfci visit: 24 minutes Post-visit documentation: minutes Care coordination: minutes Time spent on disease management/counseling in addition to CPE/AWV/WCC: minutes Total visit time: 30 minutes Immunizations Given and Recorded Vaccine Date Status [...] COVID Vaccine Unspecified 08/02/23 Recorded SARS-CoV-2 mRNA ([id number]) 04/28/22 Re corded tetanus/diphtheria/pertuss, acel (Tdap) 1 [...] mL, Note to Pharmacy: RSV vaccine, Pharmacy: [facility]/pharmacy #[id number] Start Date: 08/29/24 Status: Ordered Aspirin Low Dose Start: 08/02/10 2:30:05 PM EDT, 81 mg =, PO, Daily, Refills: 0, current medication from another provider Start Date: 08/02/10 Status: Ordered atorvastatin 20 mg oral tablet Start: 01/21/24 11:04:00 AM EDT, See Instructions, Disp# 90 tab, Refills: 3, TAKE 1 TABLET BY MOUTH EVERY DAY, Pharmacy: [facility]/pharmacy #[id number] Start Date: 01/21/24 Status: Ordered Coenzyme Q10 100 mg oral capsule Start: 05/25/11 8:30:00 AM EDT, 1 cap, PO, Daily, cap Start Date: 05/25/11 Status: Ordered fenofibrate 134 mg oral capsule Start: 01/15/24 10:17:00 AM EDT, 1 cap, PO, Daily, Disp# 90 cap, Refills: 3, Pharmacy: [facility] [id number] Start Date: 01/15/24 Status: Ordered loratadine 10 mg oral capsule Start: 05/14/19 3:27:00 PM EDT, 1 cap, PO, Daily Start Date: 05/14/19 Status: Ordered losartan 100 mg oral tablet Start: 12/31/23 7:51:00 AM EST, 1 tab, PO, Daily, Disp# 90 tab, Refills: 3, Pharmacy: [facility] [id number] Start Date: 12/31/23 Status: Ordered methIMAzole 5 mg oral tablet Start: 03/24/19 9:08:00 AM EDT, See Instructions, Disp# 30 tab, 1.5 tab PO Daily, per Endo, other Start Date: 03/24/19 Status: Ordered montelukast 10 mg oral tablet Start: 09/23/24 11:01:00 AM EST, 1 tab, PO, qPM, Disp# 90 tab, Refills: 3, Pharmacy: [facility] [id number] Start Date: 09/23/24 Status: Ordered multivitamin Start: 08/02/10 2:29:58 PM EDT, Refills: 0, 1 po daily, current medication from another provider Start Date: 08/02/10 Status: Ordered One Touch Delica Plus (33G) Lancets Start: 01/01/23 8:15:00 AM EST, See Instructions, Disp# 100 each, Refills: 11, use to check blood sugar daily prn Dx: DM, Note to Pharmacy: Dx E11.9, Pharmacy: [facility]/pharmacy #[id number] Start Date: 01/01/23 Status: Ordered One Touch Ultra 2 Glucose Monitor Start: 10/12/20 10:51:00 AM EST, See Instructions, Disp# 1 kit, Refills: 0, test blood sugars once daily, Pharmacy: [facility]/pharmacy #[id number] Start Date: 10/12/20 Status: Ordered One Touch Ultra Blue Test Strips Start: 01/01/23 8:14:00 AM EST, See Instructions, Disp# 100 each, Refills: 11, home glucose check dailhy prn Dx: DM, Pharmacy: [facility]/pharmacy #[id number] Start Date: 01/01/23 Status: Ordered One Touch Ultra Test Strips 100 ct Start: 10/12/20 10:51:00 AM EST, See Instructions, Disp# 100 each, Refills: 3, test blood sugars once daily, [id number] Start Date: 10/12/20 Status: Ordered ProAir HFA 90 mcg/inh inhalation aerosol Start: 07/27/23 8:07:00 AM EDT, 2 puff, inhaled, qid, Disp# 1 each, Note to Pharmacy: or equivalent medicine at a cheaper smith, PRN: as needed for wheezing and cough, Pharmacy: [facility]/pharmacy #[id number] Start Date: 07/27/23 Status: Ordered spironolactone 25 mg oral tablet Start: 08/12/24 8:17:00 AM EDT, 1 tab, PO, Daily, Disp# 90 tab, Refills: 1, [id number] Start Date: 08/12/24 Status: Ordered Vitamin B6 50 mg oral tablet Start: 04/10/17 8:07:00 AM EDT, 1 tab, PO, Daily, Disp# 30 tab, other Start Date: 04/10/17 Stop Date: 05/10/17 Status: Ordered Mental Status 10/06/24 Barriers to Learning one year None evide nt Mandatory Health Literacy Documentation Yes Health Literacy Communication Barriers N ever Primary Language Y[place] Problem List Condition Confirmation Course Effective Dates [...] Effective Dates Health Status Clinical Service Informant T2DM (type 2 diabetes mellitus) Discharge Diagnosis 10/06/24 Non-Specified HTN - Hypertension Discharge Diagnosis 10/06/24 Non-Specified Hyperthyroidism Discharge Diagnosis 10/06/24 Non-Specified Body mass index [BMI] 31.0-31.9, adult Discharge Diagnosis 10/06/24 Non-Specified Vitamin D insufficiency Discharge Diagnosis 10/06/24 Non-Specified Obesity Discharge Diagnosis 10/06/24 Non-Specified Hyperlipidemia Discharge Diagnosis 10/06/24 Non-Specified Procedures Procedure Date Related Diagnosis Body [...] nevus removed 05/1205/05/08 Completed Examination of eye , 13 11/14/71 Completed 1Cardiomegaly with no active disease in the chest 2Repeat colonoscopy in 5 years for surveillance. 6-Nsg-dmhgrjzd internal hemorrhoids -No specimens collected 4No evidence of diabetic retinopathy 5Final diagnosis See scanned report 6Specimens right and left apex, midprostate, base and anterior. 7mild cardiomegaly. parenchymal infiltrate left base 8No diabetic retinopathy 9internal hemorrhoids otherwise normal. Repeat in 5 years L Corl,MANUFACTURING MANAGEMENT ASSOCIATE 10no macular degeneration [id number]: WNL---repeat in 5 years due to FHx 12No evidence of diabetic retinopathy. 13No evidence of DM retinopathy Vital Signs Most recent to oldest [Reference Range]: 1 Height 168 cm (10/06/24 12:49 PM) Patient Weight 89.7 kg (10/06/24 12:49 PM) Body Mass Index 31.78 kg/m2 (10/06/24 12:49 PM) Heart Rate 67 bpm (10/06/24 12:49 PM) Respiratory Rate 12 br/min (10/06/24 12:49 PM) Blood Pressure 148/84mmHg (10/06/24 12:49 PM) Cuff Pulse Pressure 64 mmHg (10/06/24 12:49 PM) Social History Social History Type Response Smoking Status Never smoked cigaret alfred Sex Male Sex Representation Male (finding) [facility]CM Outpt Note * MD Saul, Rut: PERFORM Event Display: [facility]CM Outpt Note Authored Date: Chief Complaint 1 month F/U History of Present Illness DM: nomed. HTN: on meds. home bp has been good overall but checks occasionally. no dizzy. HLD: on meds. no muscle aches. riya: on cpap. doing well. sleeps 6 hrs a day. Review of Systems No fever/chills. No headache. No respiratory symptoms. No chest pain/shortness of breath. No nausea/vomiting. No abdominal pain. No change with bowels. No urinary symptoms. No new joint pain. No anxiety/depression. Other systems reviewed and are neg. Physical Exam Vitals & Measurements HR:67(Monitored) RR:12 BP:148/84 SpO2:98% HT:168cm WT:89.700kg(Dosing) WT:89.7kg BMI:31.78 PHQ2 Data(Data Documented on:10/06/2024 12:49) Emotional health assessment NEGATIVE General: No acute distress. Nontoxic. Head:Normocephalic, Atraumatic. Neck:Supple, Non-tender, No thyromegaly Respiratory:Lungs are clear to auscultation, Respirations non-labored, Breath sounds equal ELIECER. Cardiovascular:Normal rate, Regular rhythm, No murmur, Rubs, gallops. Gastrointestinal:Soft, Non-tender, Non-distended, Normal bowel sounds. Musculoskeletal:no pitting edema Neurologic:Alert, Oriented, No focal deficits. Psychiatric:Cooperative, Appropriate mood & affect. Assessment/Plan 1.T2DM (type 2 diabetes mellitus) STATUS: Chronic stable: x A1c = 5.8 Chronic uncontrolled: Acute uncomplicated: Acute illness with systemic symptoms: Undiagnosed new problems with uncertain prognosis: Chronic illnesses with exacerbation, progression, or side effects of treatment: 1 acute complicated injury: DATA: Review of prior external note(s) from each unique source: Review of the result(s) of each unique test: x a1c, cmp Ordering of each unique test: x Assessment requiring independent historian(s): GOAL: a1c<7 PLAN: Declined GLP1. Hep B UTD. stoppedmetformin. Diet, exercise, and wt loss - sheet given. f/u DM edu. Home glu prn.ordered a1c, UACR 2.Obesity STATUS: Chronic stable: Chronic uncontrolled: x Acute uncomplicated: Acute illness with systemic symptoms: Undiagnosed new problems with uncertain prognosis: Chronic illnesses with exacerbation, progression, or side effects of treatment: 1 acute complicated injury: DATA: Review of prior external note(s) from each unique source: Review of the result(s) of each unique test: tsh Ordering of each unique test: Assessment requiring independent historian(s): GOAL: 5% loss PLAN: Declined GLP1 and referral. Diet and exercise 3.HTN - Hypertension STATUS: Chronic stable: Chronic uncontrolled: x a bit high but looks ok at home Acute uncomplicated: Acute illness with systemic symptoms: Undiagnosed new problems with uncertain prognosis: Chronic illnesses with exacerbation, progression, or side effects of treatment: 1 acute complicated injury: DATA: Review of prior external note(s) from each unique source: Review of the result(s) of each unique test: x cmp, Echo Ordering of each unique test: Assessment requiring independent historian(s): GOAL: bp<140/90 PLAN: stoppedamlodipine due to leg swelling.HCTZ - urinary freq. AvoidBBdue to asthma. continue losartanandspironolactone - declined to increase to BID for the latter. Home BP QID and let me know if >140/90. DASH and exercise and wt loss. 4.Hyperlipidemia STATUS: Chronic stable: x at goal Chronic uncontrolled: Acute uncomplicated: Acute illness with systemic symptoms: Undiagnosed new problems with uncertain prognosis: Chronic illnesses with exacerbation, progression, or side effects of treatment: 1 acute complicated injury: DATA: Review of prior external note(s) from each unique source: Review of the result(s) of each unique test: x flp Ordering of each unique test: Assessment requiring independent historian(s): GOAL: prevent ascvd/LDL<70 PLAN: continueLipitor and fenofibrate. Very rare alcohol and no NSAIDs. ordered flp 5.Hyperthyroidism STATUS: Chronic stable: x Chronic uncontrolled: Acute uncomplicated: Acute illness with systemic symptoms: Undiagnosed new problems with uncertain prognosis: Chronic illnesses with exacerbation, progression, or side effects of treatment: 1 acute complicated injury: DATA: Review of prior external note(s) from each unique source: Review of the result(s) of each unique test: x cbc/lft, TSH Ordering of each unique test: Assessment requiring independent historian(s): GOAL: Resolution PLAN: on methimazole. f/u endo 6.Vitamin D insufficiency STATUS: Chronic stable: Chronic uncontrolled: x Acute uncomplicated: Acute illness with systemic symptoms: Undiagnosed new problems with uncertain prognosis: Chronic illnesses with exacerbation, progression, or side effects of treatment: 1 acute complicated injury: DATA: Review of prior external note(s) from each unique source: Review of the result(s) of each unique test: vit D Ordering of each unique test: Assessment requiring independent historian(s): GOAL: Resolution PLAN: will increase vitD by 1,000 units daily. call prn. f/u4 mos Time spent: Pre-visit planning/chart review: 6 minutes Wjwu-nq-qnbv visit: 24 minutes Post-visit documentation: minutes Care coordination: minutes Time spent on disease management/counseling in addition to CPE/AWV/WCC: minutes Total visit time: 30 minutes Problem List/Past Medical History Ongoing Bilateral carpal [...] mg oral tablet), See Instructions, 3 refills diabetes supplies(One Touch Ultra Blue Test Strips), [...] episode in last year:2 Employment/School Status:Employed Description:manager corporate responsibility staff [employer] Previous employment/school:BS-- at [employer]: Biology [...] Soft tissue face, stomach and lung mets Immunizations Vaccine Date Status RSV Vaccine Unspecified 09/01/2024 Recorded influenza virus vaccine, inactivated 08/29/2024 Given pneumococcal 20-valent conjugate vaccine 08/29/2024 Given SARS COVID Vaccine Unspecified 08/02/2023 Recorded influenza virus vaccine, inactivated 07/27/2023 Given influenza virus vaccine, inactivated 09/11/2022 Given SARS-CoV-2 mRNA ([id number]) 04/28/2022 Recorded tetanus/diphtheria/pertuss, acel (Tdap) 03/11/2022 Recorded Comments : 2022-03-14: Historical information-source unspecified influenza virus vaccine, inactivated 12/07/2021 Given SARS-CoV-2 (COVID-19) mRNA BNT-162b2 vax 08/04/2021 Recorded Comments : 2021-12-07: Historical information-source unspecified SARS-CoV-2 (COVID-19) mRNA BNT-162b2 vax 12/31/2020 Recorded Comments : 2021-12-07: Historical information-source unspecified SARS-CoV-2 (COVID-19) mRNA BNT-162b2 vax 12/10/2020 Recorded Comments : 2021-12-07: Historical information-source unspecified zoster vaccine, inactivated 11/21/2020 Recorded zoster vaccine, inactivated 09/16/2020 Recorded pneumococcal 23-valent vaccine 09/08/2020 Given influenza virus vaccine, inactivated 07/24/2019 Given influenza virus vaccine, inactivated 07/15/2018 Given pneumococcal 13-valent vaccine 10/12/2017 Given influenza virus vaccine, inactivated 07/12/2017 Given influenza virus vaccine, inactivated 08/29/2016 Given influenza virus vaccine, inactivated 09/03/2015 Given influenza virus vaccine, inactivated 09/01/2014 Given influenza virus vaccine, inactivated 07/17/2013 Given hepatitis B adult vaccine 04/15/2013 Given hepatitis B adult vaccine 01/14/2013 Given pneumococcal 23-valent vaccine 11/24/2012 Recorded diphtheria/tetanus/pertuss, acel (DTaP) 10/31/2012 Recorded zoster vaccine live 10/08/2012 Recorded hepatitis B adult vaccine 10/2012 Recorded hepatitis B adult vaccine 10/05/2012 Recorded Comments : 2021-12-07: Historical information-source unspecified influenza virus vaccine, inactivated 09/10/2012 Given tetanus toxoids-diphtheria, Td (Adult) 08/09/2004 Recorded Recommendations Health Maintenance Pending(in the next year) OverDue Medicare Annual Wellness Visit due09/11/23and every 1year Due Adult Social Determinants of Health Screening due10/06/24Unknown Frequency Due In Future Diabetic Eye Exam not due until03/07/25and every 731day Adult Influenza Vaccine not due until05/04/25and every 1year Diabetes Management A1c not due until08/14/25and every 366day Satisfied(in the past 1 year) Satisfied Adult Influenza Vaccine on08/29/24.Satisfied by VU Byrne Vanessa T Body Mass Index on10/06/24.Satisfied by VU Ricks Paul Diabetes Management A1c on08/13/24.Satisfied by Contributor_system, [email or web address] Lipid Screening on01/08/24.Satisfied by Contributor_system, [id number] Electronic Signature on File Electronically Reviewed/Signed by: Rut Hughes MD Author Signature Dt/Tm:10/06/2024 01:19 PM Department of Family Medicine DJ Patient Care team information Care Team Personnel Name: MD Hughes Dongsheng Position: Physician - Family Med Member Role: Primary Care Provider Address: [address] [place] [address] Name: Jennifer Baron Joy Position: Pharmacist Schedule II Member Role: Pharmacy - Lifetime Care Team Related Persons Name: WILMER ARSHAD"
--- OUTSIDE RECORDS SUMMARY | 2024-12-02 14:01 | External Medical Summary | Continuity of Care Document ---
Author Name Unknown Organization [address] Address [address] [place] [address] [phone] Care Team Providers Care Rn Radiology Name Role Phone Rut Hughes Primary Care Physician [phone] [id number] Date(s): 10/01/24 - 10/01/24 [place] [address], [address] [place] [address] [phone] Discharge Disposition: Home or Self Care Attending [...] COVID Vaccine Unspecified 08/02/23 Recorded SARS-CoV-2 mRNA ([id number]-abt) 04/28/22 Re corded tetanus/diphtheria/pertuss, acel (Tdap) 1 [...] mL, Note to Pharmacy: RSV vaccine, Pharmacy: [facility]/pharmacy #[id number] Start Date: 08/29/24 Status: Ordered Aspirin Low Dose Start: 08/02/10 2:30:05 PM EDT, 81 mg =, PO, Daily, Refills: 0, current medication from another provider Start Date: 08/02/10 Status: Ordered atorvastatin 20 mg oral tablet Start: 01/21/24 11:04:00 AM EDT, See Instructions, Disp# 90 tab, Refills: 3, TAKE 1 TABLET BY MOUTH EVERY DAY, Pharmacy: [facility]/pharmacy #[id number] Start Date: 01/21/24 Status: Ordered Coenzyme Q10 100 mg oral capsule Start: 05/25/11 8:30:00 AM EDT, 1 cap, PO, Daily, cap Start Date: 05/25/11 Status: Ordered fenofibrate 134 mg oral capsule Start: 01/15/24 10:17:00 AM EDT, 1 cap, PO, Daily, Disp# 90 cap, Refills: 3, Pharmacy: [id number] Start Date: 01/15/24 Status: Ordered loratadine 10 mg oral capsule Start: 05/14/19 3:27:00 PM EDT, 1 cap, PO, Daily Start Date: 05/14/19 Status: Ordered losartan 100 mg oral tablet Start: 12/31/23 7:51:00 AM EST, 1 tab, PO, Daily, Disp# 90 tab, Refills: 3, Pharmacy: [id number] Start Date: 12/31/23 Status: Ordered methIMAzole 5 mg oral tablet Start: 03/24/19 9:08:00 AM EDT, See Instructions, Disp# 30 tab, 1.5 tab PO Daily, per Endo, other Start Date: 03/24/19 Status: Ordered montelukast 10 mg oral tablet Start: 09/23/24 11:01:00 AM EST, 1 tab, PO, qPM, Disp# 90 tab, Refills: 3, Pharmacy: [id number] Start Date: 09/23/24 Status: Ordered multivitamin Start: 08/02/10 2:29:58 PM EDT, Refills: 0, 1 po daily, current medication from another provider Start Date: 08/02/10 Status: Ordered One Touch Delica Plus (33G) Lancets Start: 01/01/23 8:15:00 AM EST, See Instructions, Disp# 100 each, Refills: 11, use to check blood sugar daily prn Dx: DM, Note to Pharmacy: Dx E11.9, Pharmacy: [facility]/pharmacy #[id number] Start Date: 01/01/23 Status: Ordered One Touch Ultra 2 Glucose Monitor Start: 10/12/20 10:51:00 AM EST, See Instructions, Disp# 1 kit, Refills: 0, test blood sugars once daily, Pharmacy: [facility]/pharmacy #[id number] Start Date: 10/12/20 Status: Ordered One Touch Ultra Blue Test Strips Start: 01/01/23 8:14:00 AM EST, See Instructions, Disp# 100 each, Refills: 11, home glucose check dailhy prn Dx: DM, Pharmacy: [facility]/pharmacy #[id number] Start Date: 01/01/23 Status: Ordered One Touch Ultra Test Strips 100 ct Start: 10/12/20 10:51:00 AM EST, See Instructions, Disp# 100 each, Refills: 3, test blood sugars once daily, Pharmacy: [facility]/pharmacy #[id number] Start Date: 10/12/20 Status: Ordered ProAir HFA 90 mcg/inh inhalation aerosol Start: 07/27/23 8:07:00 AM EDT, 2 puff, inhaled, qid, Disp# 1 each, Note to Pharmacy: or equivalent medicine at a cheaper smith, PRN: as needed for wheezing and cough, Pharmacy: [facility]/pharmacy #[id number] Start Date: 07/27/23 Status: Ordered spironolactone 25 mg oral tablet Start: 08/12/24 8:17:00 AM EDT, 1 tab, PO, Daily, Disp# 90 tab, Refills: 1, Pharmacy: [id number] Start Date: 08/12/24 Status: Ordered Vitamin [...] 2Repeat colonoscopy in 5 years for surveillance. 3-Ndf-wwzlergd internal hemorrhoids -No specimens collected 4No evidence of diabetic retinopathy 5Final diagnosis See scanned report 6Specimens right and left apex, midprostate, base and anterior. 7mild cardiomegaly. parenchymal infiltrate left base 8No diabetic retinopathy 9internal hemorrhoids otherwise normal. Repeat in 5 years L Austyn,CONFERENCE SERVICES MANAGER 10no macular degeneration [id number]: WNL---repeat in 5 years due to FHx 12No evidence of diabetic retinopathy. 13No evidence of DM retinopathy Results Radiology Reports * Exam Date Time Procedure Performing Provider Status 10/01/24 11:40 AM Echo TransTHORacic TTE Complete w/ C ont Jeannette Sousa; Final Notes: (Echo TransTHORacic TTE Complete w/ Cont) Reason For Exam: aortic stenosis Echo TransTHORacic TTE Complete w/ Cont Report Signatures Finalized by Dr. Ashlyn Beasley DO on 10/01/2024 06:13 PM [place] Act 112: Yes - Letter to be sent Summary 1. Technically difficult study due to patient body habitus; Successfully enhanced with Definity contrast per lab protocol for better endocardial definition. 2. Normal left ventricular size and systolic function with no regional wall motion abnormalities. 3. Ejection fraction as calculated by Biplane Simpsons method is 65%. 4. Mild concentric left ventricular hypertrophy. 5. Elevated left ventricular end-diastolic pressure. Grade II diastolic dysfunction of the left ventricle (pseudonormal filling pattern). 6. Severely dilated left atrium. 7. Mildly dilated right ventricle with normal systolic function. 8. Mildly dilated right atrium. 9. Dilated aortic root (4.1 cm) and ascending aorta (4.1 cm). 10. Heavily calcified, trileaflet aortic valve. Moderate aortic stenosis (LVOT/AV ratio is 0.33; AV mean PG is 31 mmHg). Moderate aortic insufficiency (PHT 126 ms). 11. Mild to moderate mitral valve regurgitation. 12. Mildly elevated pulmonary artery pressures; estimated PASP is 38 mmHg. 13. No prior studies for comparison. Patient Info Name: LAYA ARSHAD Age: 74 years : 1950 Gender: Male Ht: 168 cm Wt: 95 kg BSA: 2.14 m2 HR: 61 bpm BP: 148 / 84 mmHg Heart Rhythm: PVCs/Ventricular bigeminy, Sinus Rhythm Technical Quality: Technically difficult study Exam Date: 10/01/2024 10:54 AM Exam Location: [facility] Patient Status: Outpatient Staff Ordering Physician: Cherrie Salas International Marketing Specialist: Jeannette Sousa RDCS, RVT Attending Physician: Cherrie Salas Study Info CPT J3490 - 49417 - Indications I352 - Nonrheumatic aortic (valve) stenosis with insufficiency Procedure(s) * A complete two-dimensional, color flow and Doppler transthoracic echocardiogram was performed. * Failed 2D images were enhanced with Definity per lab protocol. * International Marketing Specialist, Jeannette Sousa RDCS, MAIRA, provided education about ultrasound enhancing agent to the patient. Exam Type: Cardiac Basic Left Ventricle Normal left ventricular size and systolic function with no regional wall motion abnormalities. Ejection fraction as calculated by Biplane Simpsons method is 65%. Mild concentric left ventricular hypertrophy. Elevated left ventricular end-diastolic pressure. Grade II diastolic dysfunction of the left ventricle (pseudonormal filling pattern). Right Ventricle Mildly dilated right ventricle with normal systolic function. TAPSE is normal, 2.6 cm. Left Atrium Severely dilated left atrium. Right Atrium Mildly dilated right atrium. Atrial Septum Appears intact. Aortic Valve Heavily calcified, trileaflet aortic valve. Moderate aortic stenosis (LVOT/AV ratio is 0.33; AV mean PG is 31 mmHg). Moderate aortic insufficiency (PHT 126 ms). Pulmonic Valve Unremarkable pulmonic valve. Mitral Valve Calcified mitral valve annulus and leaflets without significant stenosis. Mild to moderate mitral valve regurgitation. Tricuspid Valve Trace to mild tricuspid valve regurgitation. Mildly elevated pulmonary artery pressures; estimated PASP is 38 mmHg. Pericardium/Pleural No pericardial effusion. Inferior Vena Cava Dilated IVC with normal inspiratory collapse. Estimated right atrial pressure is 8 mmHg. Aorta The aortic root at the sinus of Valsalva is dilated, measuring 4.1 cm with an index of 1.92 cm/m2. The ascending aorta is dilated, measuring 4.1 cm with an index of 1.92 cm/m2. Left Ventricular Outflow Tract Name Value Normal LVOT 2D LVOT Diameter 2.5 cm LVOT Doppler LVOT Peak Velocity 1.26 m/s LVOT Mean Gradient 3 mmHg LVOT VTI 29.50 cm LVOT VTI/AV VTI Ratio 0.33 LVOT Stroke Volume 147.59 ml LVOT Stroke Volume Index 0.07 l/m2 LVOT Cardiac Output 9.00 l/min LVOT Cardiac Index 4.21 L/min/m2 Pulmonic Valve Name Value Normal RVOT Doppler RVOT Peak Velocity 1.01 m/s PV Doppler PV Peak Velocity 1.16 m/s Mitral Valve Name Value Normal MV Doppler MV Peak Velocity 1.40 m/s MV Peak Gradient 8 mmHg MV Mean Gradient 2 mmHg MV VTI 43.27 cm MV PHT 48 ms MV Area (Cont Eq VTI) 3.4 cm2 MV Area Index (Cont Eq VTI) 1.60 cm2/m2 MV Diastolic Function MV E Peak Velocity 1.35 m/s <=0.50 MV A Peak Velocity 0.85 m/s MV E/A 1.58 <=0.80 MV Decel Time 165 ms MV Annular TDI MV Septal s' Velocity 7.98 cm/s MV Septal e' Velocity 7.61 cm/s >=7.00 MV E/e' (Septal) 17.7 <=8.0 MV Lateral s' Velocity 9.14 cm/s MV Lateral e' Velocity 10.90 cm/s >=10.00 MV E/e' (Lateral) 12.39 <=8.00 MV e' Average 9.25 MV E/e' (Average) 15.06 <=14.00 Tricuspid Valve Name Value Normal TV Regurgitation Doppler TR Peak Velocity 2.75 m/s <=2.80 TR Peak Gradient 24 mmHg Estimated PAP/RSVP RA Pressure 8 mmHg <=5 PA Systolic Pressure 38 mmHg <40 TV Diastolic Function TV E Peak Velocity 0.53 m/s TV A Peak Velocity 0.34 m/s TV E/A 1.56 0.80-2.00 TV Decel Time 274 ms >=120 TV Annular TDI TV Lateral Eve s' Velocity 14.5 cm/s 9.5-18.7 TV Lateral Eve e' Velocity 17.3 cm/s <7.8 TV E/e' 3.05 2.00-6.00 Aorta Name Value Normal Ascending Aorta Sinus of Valsalva Diameter 4.1 cm 3.1-3.7 Sinus of Valsalva Index 1.92 cm/m2 1.50-1.90 Prox Asc Ao Diameter 4.1 cm 2.6-3.4 Prox Asc Ao Diameter Index 1.92 cm/m2 1.30-1.70 Venous Name Value Normal IVC/SVC IVC Diameter (Insp 2D) 0.9 cm IVC Diameter (Exp 2D) 2.2 cm <=2.1 IVC Diameter Percent Change (2D) 61 % >=50 Aortic Valve Name Value Normal AV Doppler AV Peak Velocity 3.87 m/s <2.00 AV Peak Gradient 60 mmHg AV Mean Gradient 31 mmHg <20 AV VTI 89.35 cm AV Area (Cont Eq VTI) 1.7 cm2 >=2.0 AV Area Index (Cont Eq VTI) 0.77 cm2/m2 AV Area (Cont Eq Richi) 1.6 cm2 AV Area Index (Cont Eq Richi) 0.76 cm2/m2 AV V1/V2 Ratio 0.33 AV Regurgitation 2D LVOT Area 5.0 cm2 AV Regurgitation Doppler AR Decel Time 1,468 ms AR PHT 426 ms Ventricles Name Value Normal LV Dimensions 2D/MM IVS Diastolic Thickness (2D) 1.3 cm 0.6-1.0 LVID Diastole (2D) 5.0 cm 3.6-5.6 LVIW Diastolic Thickness (2D) 1.2 cm 0.6-1.0 LVID Systole (2D) 3.0 cm 2.5-4.0 LVOT Diameter 2.5 cm LV Fractional Shortening/Ejection Fraction 2D/MM LV Fractional Shortening (2D) 41 % 25-43 LV Diastolic Volume (4C MOD) 131 ml LV Diastolic Volume (2C MOD) 128 ml LV Diastolic Volume (BP MOD) 129 ml 62-150 LV Diastolic Volume Index (BP MOD) 60.14 ml/m2 34.00-74.00 LV Systolic Volume (BP MOD) 45 ml 21-61 LV Systolic Volume Index (BP MOD) 20.99 ml/m2 11.00-31.00 LV EF (BP MOD) 65 % 57-68 LV SV (BP MOD) 83.67 ml LV End Diastolic Volume (BP A-L) 134.80 ml LV End Systolic Volume (BP A-L) 47.29 ml LV EF (BP A-L) 65 % RV Dimensions 2D/MM RV Basal Diastolic Dimension 4.4 cm 2.5-4.1 TAPSE 2.6 cm >=1.7 Atria Name Value Normal LA Dimensions LA Area (4C) 35.9 cm2 LA Length (4C) 7.4 cm LA Area (2C) 38.9 cm2 LA Length (2C) 7.5 cm LA Volume (4C A-L) 148.22 ml LA Volume (2C A-L) 170.76 ml LA Volume (BP A-L) 161 ml 18-58 LA Volume Index (BP A-L) 75.16 ml/m2 <=34.00 RA Dimensions RA Area (4C) 21.3 cm2 <=18.0 Final Signed by:DO Beasley Michelle L Signed (Electronic Signature):10/01/2024 10:54 Social History Social History Type Response Smoking Status Never smoked cigaret alfred Sex Male Sex Representation Male (finding) Patient Care team information Care Team Personnel Name: MD Saul, Rut Position: Physician - Family Med Member Role: Primary Care Provider Address: [facility] Name: Jennifer Baron Joy Position: Pharmacist Schedule II Member Role: Pharmacy - Lifetime Care Team Related Persons Name: WILMER ARSHAD
[2024-12-02] MEDS: methIMAzole 5 MG TABLET PO SCH (20:57)
[2024-12-02] MEDS: PYRIDOXINE HCL 50 MG TAB PO SCH (20:58)
[2024-12-02] MEDS: FENOFIBRATE NANOCRYSTALLIZED 145 MG TABLET PO SCH (20:58)
[2024-12-02] MEDS: MONTELUKAST SODIUM 10 MG TABLET PO SCH (20:58)
[2024-12-03 03:37] VITALS: O2SAT 94
[2024-12-03 06:48] LABS: Basophils # (auto) 0.03 K/uL (0.00-0.20); Basophils % (auto) 0.5 %; Eosinophils # (auto) 0.12 K/uL (0.00-0.50); Eosinophils % (auto) 1.8 %; Hematocrit (blood only) 37.9 % (42.0-52.0); Immature Granulocytes # (auto) 0.02 K/uL (0.01-0.20); Immature Granulocytes % (auto) 0.3 %; Lymphocytes # (auto) 0.55 K/uL (1.20-3.40); Lymphocytes % (auto) 8.4 %; Mean Corpuscular Hemoglobin 29.9 pg (25.0-34.0); Mean Corpuscular Hgb Conc 34.3 g/dL (32.0-36.0); Mean Corpuscular Volume 87.1 fL (80.0-100.0); Mean Platelet Volume 9.3 fL (9.4-12.4); Monocytes # (auto) 0.57 K/uL (0.11-0.59); Monocytes % (auto) 8.7 %; Neutrophils # (auto) 5.28 K/uL (1.40-6.50); Neutrophils % (auto) 80.3 %; Platelet Count 237 K/uL (130-400); RDW Coefficient of Variation 12.7 % (11.5-14.5); RDW Standard Deviation 40.9 fL (36.4-46.3); Red Blood Count 4.35 M/uL (4.70-6.10); White Blood Count 6.57 K/ul (4.8-10.8)
[2024-12-03 07:14] LABS: BUN Creatinine Ratio 19.4 (10-20); Calcium 9.3 mg/dl (8.6-10.3); Creatinine Clr Calc Pharmacy 71.6 ml/min; Potassium 3.9 mmol/L (3.5-5.1)
[2024-12-03 08:01] VITALS: PULSE 70; RESP 18; TEMP 98.4
[2024-12-03] MEDS: SPIRONOLACTONE 25 MG TAB PO SCH (08:39)
[2024-12-03] MEDS: ASPIRIN 81 MG ECTAB PO SCH (08:39)
[2024-12-03] MEDS: ATORVASTATIN 40 MG TAB PO SCH (08:39)
[2024-12-03] MEDS: LOSARTAN POTASSIUM 50 MG TAB PO SCH (08:39)
[2024-12-03] MEDS: LORATADINE 10 MG TAB PO SCH (08:39)
[2024-12-03] MEDS: TAMSULOSIN HCL 0.4 MG CAP PO SCH (08:40)
[2024-12-03] MEDS: MULTIVITAMIN TAB PO SCH (08:40)
[2024-12-03] MEDS: CLOPIDOGREL BISULFATE 75 MG TAB PO SCH (08:40)
[2024-12-03 08:45] VITALS: BP 118/73
[2024-12-03] MEDS ORDERED: NON-FORMULARY MEDICATION (Coenzyme Q10 [Coq-10] 100 mg capsule) PO SCH (09:00)
--- NOTE | 2024-12-03 09:02 | Electrocardiogram Report ---
Test Reason : Blood Pressure : */* mmHG Vent. Rate : 67 BPM Atrial Rate : 67 BPM P-R Int : 160 ms QRS Dur : 94 ms QT Int : 428 ms P-R-T Axes : 10 36 42 degrees QTcB Int : 452 ms Normal sinus rhythm Normal ECG When compared with ECG of 11-Oct-2023 14:35, (unconfirmed) Premature ventricular complexes are no longer Present Confirmed by Ashlyn Beasley ([place]) on 12/03/2024 9:01:53 AM Referred By: Cherrie Salas Confirmed By: Ashlyn Beasley
--- NOTE | 2024-12-03 10:45 | Discharge Summary ---
Date of Service December 03, 2024 Admission HPI Per Admitting Provider Mr. Bustamante is a very pleasant 74 year old man who was referred by his cardiology team for cardiac catheterization in the setting of progressive exertional dyspnea with abnormal stress test. Stress test notable for limited functional capacity, chronotropic incompetence and frequent ventricular ectopy. Preserved LV function at rest with moderate aortic stensois. Discharge Data Procedures Performed Operation Date: 12/02/24 11:00 Actual Procedures s Cineradiography w/Routine Exam - Gareth Bui MD p Cath, Coronaries ONLY (no LV) - Gareth Bui MD p Drug Eluting Stent SGl Vessel - Gareth Bui MD Hospital Course (1) Coronary artery disease: Cardiac catheterization via right radial artery showed severe single vessel CAD with 80-90% heavily calcified distal RCA stenosis at takeoff of RPDA. Had successful PCI of distal RCA with intravascular lithotripsy and single drug- eluting stent (3.0 x 15 mm [place]; postdilated with 3.5 NC and additional lithotripsy). Post procedure admitted to telemetry service for observation. He remained chest pain free overnight. No arrhythmia on telemetry and hemodynamically stable throughout course. Post procedure labs showed stable hemoglobin and renal function. On day of discharge tenderness at RT radial artery access site but no hematoma and neurovascularly intact. Discharged to home on DAPT with ASA/Clopidogrel. We discussed cardiac rehab. Will follow-up with Dr. Nolvia Shipley in 1-2 weeks. Discharge Instructions Home Medications aspirin 81 mg tablet,delayed release 81 mg PO QAM 06/27/19 [History Confirmed 12/02/24] coenzyme Q10 100 mg capsule (CoQ-10) 100 mg PO QAM 06/27/19 [History Confirmed 12/02/24] fenofibrate micronized 134 mg capsule 134 mg PO QPM 06/27/19 [History Confirmed 12/02/24] multivitamin 1 tab PO QAM 06/27/19 [History Confirmed 12/02/24] loratadine 10 mg capsule 10 mg PO QAM 07/20/21 [History Confirmed 12/02/24] losartan 100 mg tablet 100 mg PO QAM 12/05/22 [History Confirmed 12/02/24] pyridoxine (vitamin B6) 100 mg tablet (Vitamin B-6) 50 mg PO QPM 12/05/22 [History Confirmed 12/02/24] Auto Titrating CPAP #1 ea 12/25/23 [Rx Confirmed 09/23/24] montelukast 10 mg tablet 10 mg PO HS 02/14/24 [History Confirmed 12/02/24] methimazole 5 mg tablet 7.5 mg (1.5 x 5 mg) PO QPM #135 tabs 08/22/24 [Rx Confirmed 12/02/24] alfuzosin 10 mg tablet,extended release 24 hr See Rx Instructions .Route .COMPLEX #90 tabs 09/23/24 [Rx Confirmed 12/02/24] spironolactone 25 mg tablet 25 mg PO DAILY 09/23/24 [History Confirmed 12/02/24] atorvastatin 40 mg tablet 40 mg PO QAM #30 tabs 12/03/24 [Rx] clopidogrel 75 mg tablet 75 mg PO QAM #90 tabs 12/03/24 [Rx] nitroglycerin 0.4 mg sublingual tablet (Nitrostat) 0.4 mg sublingual Q5M PRN chest pain #30 tabs 12/03/24 [Rx] Coding Level of Care Code 36938 IN/OBS DISCH 30 MIN/LESS Diagnoses Coronary artery disease I25.10
== END 2024-12-03 12:15 | disposition home or self-care (01) | DRG 324 ==
LOC: CC 09:49 → 2E 13:06
PROC: CLB.CCO (2024-12-02 11:00)